=== PATIENT | male | born 1970 | race Caucasian/White ===

== ENCOUNTER 2019-09-21 01:45 | Emergency (ER) | payer MEDICAID, SELFPAY ==
[2019-09-21 01:53] VITALS: BP 93/47; PULSE 66; RESP 16; TEMP 36.8; O2SAT 98; BMI 20.5
--- NOTE | 2019-09-21 02:09 | CTR_ITS ---
PROCEDURE INFORMATION: Exam: CT Right Lower Extremity Without Contrast, Hip Exam date and time: 09/21/2019 2:33 AM Age: 49 years old Clinical indication: Right; Patient HX: No trauma, sudden onset of RT hip sharp pain; Additional info: Hip pain TECHNIQUE: Imaging protocol: CT of the Right lower extremity without contrast was performed. Exam focused on the hip. Radiation optimization: All CT scans at this facility use at least one of these dose optimization techniques: automated exposure control; mA and/or kV adjustment per patient size (includes targeted exams where dose is matched to clinical indication); or iterative reconstruction. COMPARISON: No relevant prior studies available. RADIATION DOSE METRICS: Total DLP (mGy-cm): 262.92 FINDINGS: Bones/joints: Normal. No acute fracture or dislocation. Soft tissues: Normal. CT/CT hip RT wo con* [id number] IMPRESSION: Unremarkable CT. Radiation Dose CTDIVOL = (mGy): DLP = 262.92 (mGy-cm)
--- NOTE | 2019-09-21 02:09 | XRR_ITS ---
PROCEDURE INFORMATION: Exam: XR Chest, 1 View Exam date and time: 09/21/2019 3:05 AM Age: 49 years old Clinical indication: Chest pain; Additional info: Cp TECHNIQUE: Imaging protocol: XR of the chest Views: 1 view. COMPARISON: CR Chest 1 [place] [id number] 10/18/2018 3:33 AM FINDINGS: Lungs: Unremarkable. No consolidation. Pleural space: Unremarkable. No evidence of pleural effusion or pneumothorax. Heart/Mediastinum: Unremarkable. No cardiomegaly. Bones/joints: Unremarkable. XR/XR chest 1V portable [id number] IMPRESSION: No acute findings.
--- NOTE | 2019-09-21 02:10 | ECG_ITS ---
[facility] Test Date: 2019-09-21 Pat Name: Delbert Nam Department: Room: Gender: Male Yarn Man: : 1970 Requested By: Cabrera Fox Order Number: [id number] Kendall MD: Karolina Richards M.D. Measurements Intervals [place] Rate: 61 P: 60 IA: 166 QRS: 101 QRSD: 96 T: 29 QT: 390 QTc: 394 Interpretive Statements SINUS RHYTHM POSSIBLE RIGHT VENTRICULAR HYPERTROPHY [SOME/ALL OF: PROMINENT R IN V1, LATE TRANSITION, RAD, CHATO, SSS] Compared to ECG 10/18/2018 05:16:04 Atrial abnormality now present Electronically Signed On 09-21-2019 12:41:09 CDT by Karolina Richards M.D. [id number]
--- NOTE | 2019-09-21 02:26 | ED_ITS ---
HPI - Chest Pain General: Chief Complaint: Chest Pain Stated Complaint: CP/ SOB Time Seen by Provider: 09/21/19 01:52 History of Present Illness: HPI narrative: 49-year-old male with a history of coronary disease. He states that he was using a chainsaw all day, cutting stumps out of his drive he did not have any chest discomfort at that point. He began to get significant right-sided groin pain after he was finished, walking up the driveway. He said the pain was quite intense. Following this, he got some chest discomfort with some shortness of breath. He was nauseated. He said the right side of his chest and right arm went numb as well. He took a nitroglycerin, and then got dizzy. On EMS arrival, he was found to be hypotensive. This corrected with fluids on the way here. His chest discomfort is gone. He is still complaining of right-sided groin pain it does not reach his testicle. 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 Onset (ago): hour(s) Timing of current episode: now resolved Prior episodes: Yes Onset: during exertion Pain location: substernal and right chest Pain radiation: other (Originated right groin) Quality: aching Exacerbating factors: exertion and movement Associated symptoms: Reports dyspnea and nausea; Deny abdominal pain, fever(s), leg edema, palpitations or vomiting Review of Systems Const: Denies: fever(s) Eyes: Denies: change in vision or blurry vision ENMT: Denies: swelling of lips/tongue, epistaxis or post nasal drip Card: Reports: chest pain; Denies: palpitations, edema, swelling of feet/ankles, dyspnea on exertion or o rthopnea Resp: Reports: dyspnea; Denies: productive cough, non-productive cough or wheezing GI: Reports: nausea; Denies: abdominal pain or vomiting : Denies: difficulty urinating, dysuria, urinary frequency, urinary urgency or hematuria Musc: Denies: neck pain, back pain, joint redness or joint warmth Skin/Breast: Denies: rash, pruritus or erythema Neuro: Reports: dizziness; Denies: headache(s) or vertigo Psych: Denies: anxiety PFS ED PFSH: Medical History (Updated 09/21/19 @ 06:09 by Cabrera Ruddy Chavo, DO) CAD (coronary artery disease) Diabetes Dizziness Family History Mother Stroke Diabetes Myocardial infarction Sister Diabetes Myocardial infarction Social History Smoking and tobacco status: current every day smoker cigarettes Physical Exam Const: GENERAL APPEARANCE: well developed ORIENTATION/CONSCIOUSNESS: Yes oriented to person, Yes oriented to place and Yes oriented to time HENMT: COMMON NORMALS: normocephalic, external ears normal and Normal external nose present HEAD & SCALP: normocephalic FACE & SINUS: normal facial exam NOSE: Normal external nose present and No nasal discharge present EXTERNAL EAR: Yes external ears normal Eye: COMMON NORMALS: Equal, round and reactive pupils present, EOMs intact bilaterally and conjunctivae normal EYELID: eyelids normal CONJUNCTIVA: Yes conjunctivae normal PUPIL: Yes Equal, round and reactive pupils present Neck/C-Spine: COMMON NORMALS: full ROM GENERAL: No tracheal deviation Chest: COMMONS NORMALS: normal inspection of the chest CHEST: No tenderness Resp: COMMON NORMALS: clear to auscultation bilaterally EFFORT & INSPECTION: No tachypneic, No respiratory distress, No retractions, No uses accessory muscles and No tracheal deviation AUSCULTATION: clear to auscultation bilaterally, no rhonchi, no wheezes and lung sounds not diminished Cardio: COMMON NORMALS: regular rate and regular rhythm RATE: regular rate RHYTHM: regular rhythm HEART SOUNDS: no murmurs PERIPHERAL PULSES: radial pulses present GI: INSPECTION: No abdominal distension AUSCULTATION: No Hyperactive bowel sounds present and No Hypoactive bowel sounds present PALPATION: No Guarding due to palpation present (GI) and No Rigid due to palpation PERCUSSION: no dullness to percussion and no tympanic to percussion Extremity: NARRATIVE EXTREMITY EXAM: Exam of the right lower extremity reveals right hip tenderness over the anterior joint line. There is some pain more distally. There is no deformity. There is no inguinal bulge. There is no femoral bulge. There is no bruising. There is mild pain with logroll testing. There is significant pain on Stinchfield testing. Neuro: SENSORIUM/ORIENTATION: Yes oriented to person, Yes oriented to place and Yes oriented to time Psych: COMMON NORMALS: mental status grossly normal Skin: COMMON NORMALS: no rashes or lesions noted GENERAL SKIN EXAM: no rashes or lesions noted Course Vital Signs: Vital signs: Vital Signs Temperature 98.2 F 09/21/19 01:53 Pulse Rate 54 L 09/21/19 05:00 Respiratory Rate 18 09/21/19 05:00 Blood Pressure 92/51 09/21/19 05:00 Pulse Oximetry 99 09/21/19 05:00 MDM - Chest Pain MDM Narrative: Medical decision making narrative: 49-year-old male does have a history of coronary disease. Sudden onset of right sided groin pain and then developed right sided chest pain. His d-dimer is nondetectable. CT of the hip region is negative for hemorrhage, joint effusion or derangement, lymphadenopathy, etc. Chest x-ray is negative. His EKG did not show any ST elevation or depression. His delta troponin is not significant at 2 hours. His other laboratory is benign. His chest pain is resolved. Lab Data: Labs: Lab Results 09/21/19 09/21/19 09/21/19 Range/Units 02:15 02:15 02:15 WBC 14.1 H (4.0-10.0) 10^3/ uL RBC 4.30 (4.1-5.3) 10^6/u L Hgb 12.2 (11.7-16.6) g/dL Hct 37.2 L (42.0-52.0) % MCV 86.5 (80-94) fL MCH 28.4 (28.0-34.0) pg MCHC 32.8 (30.0-36.0) g/dL RDW 14.2 (12.1-15.1) % Plt Count 222 (130-400) 10^3/c mm MPV 10.0 (7.4-10.4) fL Neut % (Auto) 80.7 % Lymph % (Auto) 10.9 % [place] % (Auto) 6.3 % Eos % (Auto) 1.4 % Baso % (Auto) 0.4 % Neut # (Auto) 11.36 H (1.8-7.7) 10^3/u L Lymph # (Auto) 1.5 (0.8-4.8) 10^3/u L [place] # (Auto) 0.9 (0.2-0.9) 10^3/u L Eos # (Auto) 0.2 (0.0-0.8) 10^3/u L Baso # (Auto) 0.1 (0.0-0.1) 10^3/u L Nucleated RBC % (a uto) 0 % Nucleated RBCs # 0.0 /100WBC D-Dimer (0-0.59) ug/mIFE U Sodium 139 (136-145) mmol/L Potassium 3.5 (3.5-5.1) mmol/L Chloride 106 (98-107) mmol/L Carbon Dioxide 23 (22-29) mmol/L Anion Gap 13.5 (5-19) BUN 15 (6-20) mg/dL Creatinine 1.0 (0.7-1.2) mg/dL GFR Calculation 79.4 L (90-130) mL/min Glucose 113 (65-115) mg/dL Calculated Osmolal ity 285 (285-295) mOsm/k g Calcium 8.1 L (8.5-10.5) mg/dL Total Bilirubin 0.4 (0.15-1.2) mg/dL AST 27 (0-40) U/L ALT 32 (0-41) U/L Alkaline Phosphata se 59 (40-130) IU/L Creatine Kinase 74 (39-308) U/L Troponin T Baselin e 9 (0-15) ng/L Troponin T 120 Min [place] (0-15) ng/L NT-Pro-B Natriuret Pep 61 (0-125) pg/mL Total Protein 6.1 L (6.6-8.7) g/dL Albumin 3.8 (3.5-5.2) g/dL Globulin 2.3 (1.3-4.6) g/dL 09/21/19 09/21/19 Range/Units 02:15 04:30 WBC (4.0-10.0) 10^3/ uL RBC (4.1-5.3) 10^6/u L Hgb (11.7-16.6) g/dL Hct (42.0-52.0) % MCV (80-94) fL MCH (28.0-34.0) pg MCHC (30.0-36.0) g/dL RDW (12.1-15.1) % Plt Count (130-400) 10^3/c mm MPV (7.4-10.4) fL Neut % (Auto) % Lymph % (Auto) % [place] % (Auto) % Eos % (Auto) % Baso % (Auto) % Neut # (Auto) (1.8-7.7) 10^3/u L Lymph # (Auto) (0.8-4.8) 10^3/u L [place] # (Auto) (0.2-0.9) 10^3/u L Eos # (Auto) (0.0-0.8) 10^3/u L Baso # (Auto) (0.0-0.1) 10^3/u L Nucleated RBC % (a uto) % Nucleated RBCs # /100WBC D-Dimer <= 0.27 (0-0.59) ug/mIFE U Sodium (136-145) mmol/L Potassium (3.5-5.1) mmol/L Chloride (98-107) mmol/L Carbon Dioxide (22-29) mmol/L Anion Gap (5-19) BUN (6-20) mg/dL Creatinine (0.7-1.2) mg/dL GFR Calculation (90-130) mL/min Glucose (65-115) mg/dL Calculated Osmolal ity (285-295) mOsm/k g Calcium (8.5-10.5) mg/dL Total Bilirubin (0.15-1.2) mg/dL AST (0-40) U/L ALT (0-41) U/L Alkaline Phosphata se (40-130) IU/L Creatine Kinase (39-308) U/L Troponin T Baselin e (0-15) ng/L Troponin T 120 Min [place] 10.85 (0-15) ng/L NT-Pro-B Natriuret Pep (0-125) pg/mL Total Protein (6.6-8.7) g/dL Albumin (3.5-5.2) g/dL Globulin (1.3-4.6) g/dL Discharge Plan Discharge Patient Disposition: Home Clinical Impression: Chest pain Qualifiers: Chest pain type: unspecified Qualified Code(s): R07.9 - Chest pain, unspecified Strain of muscle of right hip Qualifiers: Encounter type: initial encounter Qualified Code(s): S76.011A - Strain of muscle, fascia and tendon of right hip, initial encounter Condition: Stable Prescriptions: [place] 5-325 mg tablet 1 tab PO Q6H PRN (Reason: pain) Qty: 7 RF: 0 No Action lisinopril 2.5 mg tablet 2.5 mg PO QDAY RF: 0 metoprolol tartrate 25 mg tablet 25 mg PO BID RF: 0 clopidogrel [Plavix] 75 mg tablet 75 mg PO QDAY RF: 0 metformin 500 mg tablet 500 mg PO BID RF: 0 atorvastatin 40 mg tablet 40 mg PO QDAY RF: 0 nitroglycerin [Nitrostat] 0.4 mg tablet, sublingual 0.4 mg SUBLINGUAL DIRECTED RF: 0 Discharge Orders: Discharge Order (Routine); Ordered 09/21/19 Ordered By: Cabrera Tony Referrals: Danita Fischer PA [Primary Care Provider] - Patient Instructions: Chest Pain (ED), Muscle Strain (ED) Activity Restrictions/Additional Instructions: Return for worsening or return of chest pain, shortness of breath, other concerning symptoms. Also return for fever, worsening hip pain despite treatment, etc. Coding Level of Care Code ED Insulation Cupola Charger for [place] Fwd Exam Comprehensive
[2019-09-21 02:53] LABS: Troponin(5th) Baseline 9 ng/L (0-15)
[2019-09-21 03:01] VITALS: BP 93/45; PULSE 56; RESP 16; O2SAT 98
[2019-09-21 03:02] LABS: Alanine Aminotransferase 32 U/L (0-41); Albumin Level 3.8 g/dL (3.5-5.2); Alkaline Phosphatase 59 IU/L (40-130); Anion Gap 13.5 (5-19); Aspartate Amino Transferase 27 U/L (0-40); Blood Urea Nitrogen 15 mg/dL (6-20); Calcium 8.1 mg/dL (8.5-10.5); Carbon Dioxide 23 mmol/L (22-29); Chloride 106 mmol/L (98-107); Creatine Phosphokinase 74 U/L (39-308); Globulin 2.3 g/dL (1.3-4.6); Glomerular Filtration Rate 79.4 mL/min (90-130); Glucose 113 mg/dL (65-115); NT Pro B Type Natriuretic Pept 61 pg/mL (0-125); Osmolality Calculated 285 mOsm/kg (285-295); Potassium 3.5 mmol/L (3.5-5.1); Sodium 139 mmol/L (136-145); Total Bilirubin 0.4 mg/dL (0.15-1.2); Total Protein 6.1 g/dL (6.6-8.7)
[2019-09-21 03:07] LABS: Basophils # 0.1 10^3/uL (0.0-0.1); Basophils % 0.4 %; Eosinophils # 0.2 10^3/uL (0.0-0.8); Eosinophils % 1.4 %; Hematocrit 37.2 % (42.0-52.0); Hemoglobin 12.2 g/dL (11.7-16.6); Lymphocytes # 1.5 10^3/uL (0.8-4.8); Lymphocytes % 10.9 %; Mean Corpuscular HGB Conc 32.8 g/dL (30.0-36.0); Mean Corpuscular Hemoglobin 28.4 pg (28.0-34.0); Mean Corpuscular Volume 86.5 fL (80-94); Monocytes # 0.9 10^3/uL (0.2-0.9); Monocytes % 6.3 %; Neutrophils # 11.36 10^3/uL (1.8-7.7); Neutrophils % 80.7 %; Nucleated Red Blood Cells % 0 %; Platelet Count 222 10^3/cmm (130-400); Red Cell Distribution Width 14.2 % (12.1-15.1); White Blood Count 14.1 10^3/uL (4.0-10.0)
[2019-09-21 03:46] LABS: D Dimer <= 0.27 ug/mIFEU (0-0.59)
[2019-09-21 04:42] VITALS: BP 89/49; PULSE 53; RESP 14; O2SAT 100
[2019-09-21 05:00] VITALS: BP 92/51; PULSE 54; RESP 18; O2SAT 99
[2019-09-21 05:57] LABS: Troponin 5 2HR 10.85 ng/L (0-15); Troponin 5 2HR Delta 1.85 ABS# (0-10)
[2019-09-21 06:30] VITALS: BP 95/52; PULSE 56; RESP 14; O2SAT 98
== END 2019-09-21 06:32 | disposition home or self-care (01) ==
PROVIDERS: Emergency Provider Emergency Medicine; PCP Physician Assistant
DX: R07.9 Chest pain, unspecified (principal); S76.011A Strain of muscle, fascia and tendon of right hip, initial encounter; Z79.02 Long term (current) use of antithrombotics/antiplatelets; I25.10 Atherosclerotic heart disease of native coronary artery without angina pectoris; E11.9 Type 2 diabetes mellitus without complications; F17.210 Nicotine dependence, cigarettes, uncomplicated; Z79.84 Long term (current) use of oral hypoglycemic drugs; X50.9XXA Other and unspecified overexertion or strenuous movements or postures, initial encounter
CPT/HCPCS: 12345; 71045; 73700; 80053; 82550; 83880; 84484; 85025; 85378; 93005; 99283; 99284

== ENCOUNTER 2022-07-17 19:18 | Emergency (ER) | payer BC, MEDICAID, SELFPAY ==
[2022-07-17] VITALS (9 sets, daily range): BP systolic 78–105; BP diastolic 55–70; PULSE 64–90; RESP 16–20; O2SAT 96–98; BMI 26.6
--- NOTE | 2022-07-17 19:19 | ECG_ITS ---
[facility] Test Date: 2022-07-17 Pat Name: Delbert Nam Department: Room: Gender: Male Stylist Assistant: : 1970 Requested By: Chetan Remy Order Number: [id number] Kendall MD: Luis Carvalho M.D. Measurements Intervals [place] Rate: 79 P: 62 VT: 169 QRS: 69 QRSD: 83 T: 30 QT: 347 QTc: 400 Interpretive Statements SINUS RHYTHM POSSIBLE LEFT ATRIAL ENLARGEMENT [-0.1mV P-WAVE IN V1/V2] Compared to ECG 09/21/2019 02:17:59 No significant changes Electronically Signed On 07-17-2022 20:50:38 CDT by Luis Carvalho M.D. [email or web address] [facility].[employer] [facility]/store/NU/[id number] f
--- NOTE | 2022-07-17 19:19 | XRR_ITS ---
PROCEDURE INFORMATION: Exam: XR Chest Exam date and time: 07/17/2022 7:33 PM Age: 52 years old Clinical indication: Pain; Chest pressure; Additional info: Cp TECHNIQUE: Imaging protocol: Radiologic exam of the chest. Views: 1 view. COMPARISON: CR XR chest 2V* [id number] 06/26/2022 9:43 AM FINDINGS: Lungs: Unremarkable. No consolidation. Pleural spaces: Unremarkable. No pleural effusion. No pneumothorax. Heart/Mediastinum: Unremarkable. No cardiomegaly. Bones/joints: Unremarkable. XR/XR chest 1V portable [id number] IMPRESSION: No acute findings.
--- NOTE | 2022-07-17 19:35 | W.ED.CHESTPA ---
HPI - Chest Pain General: Chief Complaint: Chest Pain Stated Complaint: CP Time Seen by Provider: 07/17/22 19:19 Source: patient and EMS Mode of arrival: EMS Limitations: no limitations History of Present Illness: 52-year-old male states that he had been outside working yesterday and then was outside again today states when he came to the house started to get palpitations. He states he had this before his heart rate will jump up and its been due to dehydration the past he states he drink some fluids may continue to have some chest pain he states that the pain in the center of his chest he had some slight dyspnea as well. Patient came in by EMS he has received nitro in route he states he is currently pain-free he denies any diaphoresis or nausea. Associated symptoms: Reports palpitations; Deny abdominal pain, dyspnea, fever(s), nausea or vomiting Review of Systems Const: Denies: fever(s), chills, body aches or change in appetite ENMT: Denies: throat pain or dental pain Card: Reports: chest pain and palpitations Resp: Denies: dyspnea GI: Denies: abdominal pain, nausea, vomiting or diarrhea : Denies: dysuria Musc: Denies: neck pain or back pain Skin/Breast: Denies: rash Neuro: Denies: headache(s) Psych: Denies: depression PFSH ED PFSH: Medical History (Updated 07/17/22 @ 22:04 by Chetan Remy MD) CAD (coronary artery disease) Diabetes Dizziness Family History Mother Stroke Diabetes Myocardial infarction Sister Diabetes Myocardial infarction Social History Smoking and tobacco status: current every day smoker cigarettes Physical Exam Const: COMMON NORMALS: no acute distress, patient oriented x3 and healthy appearing HENMT: COMMON NORMALS: normocephalic and atraumatic HEAD & SCALP: normocephalic and atraumatic Eye: COMMON NORMALS: conjunctivae normal CONJUNCTIVA: Yes conjunctivae normal Neck/C-Spine: COMMON NORMALS: full ROM and supple Chest: COMMONS NORMALS: normal inspection of the chest and normal palpation of entire chest wall Resp: COMMON NORMALS: normal respiratory effort, No retractions, No use of accessory muscles and clear to auscultation bilaterally AUSCULTATION: clear to auscultation bilaterally Cardio: COMMON NORMALS: regular rate, regular rhythm and No murmurs present (Cardio) RATE: regular rate RHYTHM: regular rhythm GI: COMMON NORMALS: Normal to inspection, nondistended, normoactive bowel sounds present, Soft to palpation, non-tender and no masses PALPATION: Yes Soft to palpation Extremity: COMMON NORMALS: normal to inspection and full ROM Neuro: COMMON NORMALS: patient oriented x3, moves all extremities and no focal motor deficits Psych: COMMON NORMALS: mental status grossly normal, Normal thought process present and cooperative THOUGHT PROCESS: Normal thought process present Skin: COMMON NORMALS: no rashes or lesions noted and no wounds GENERAL SKIN EXAM: no rashes or lesions noted Course Vital Signs: Vital signs: Vital Signs Pulse Rate 82 07/17/22 22:11 Respiratory Rate 16 07/17/22 22:11 Blood Pressure 93/60 07/17/22 22:11 Pulse Oximetry 97 07/17/22 22:11 Oxygen Delivery Me thod Room Air 07/17/22 21:19 MDM - Chest Pain Medical Decision Making Patient presents here with chest pains atypical in nature initial repeat troponins here are normal delta is less than 10 he has had no pain here no signs of acute coronary syndrome no signs of pulmonary embolism or dissection he is stable for discharge she is to follow-up with PCP and return if worsening. Medical Records I reviewed the patient's medical records. Lab Data I reviewed the patient's lab results. 07/17/22 19:40 07/17/22 19:40 Radiology Impressions Chest X-Ray 07/17/22 19:19 IMPRESSION: No acute findings. Laboratory Results WBC 12.6 10^3/uL (4.0-10.0) H 07/17/22 19:40 RBC 5.25 10^6/uL (4.1-5.3) 07/17/22 19:40 Hgb 14.8 g/dL (11.7-16.6) 07/17/22 19:40 Hct 45.9 % (42.0-52.0) 07/17/22 19:40 MCV 87.4 fl (80-94) 07/17/22 19:40 MCH 28.2 pg (28.0-34.0) 07/17/22 19:40 MCHC 32.2 g/dL (30.0-36.0) 07/17/22 19:40 RDW 13.9 % (12.1-15.1) 07/17/22 19:40 Plt Count 268 10^3/cmm (130-400) 07/17/22 19:40 MPV 9.1 fL (7.4-10.4) 07/17/22 19:40 Neut % (Auto) 63.1 % 07/17/22 19:40 Lymph % (Auto) 22.9 % 07/17/22 19:40 [place] % (Auto) 7.3 % 07/17/22 19:40 Eos % (Auto) 5.7 % 07/17/22 19:40 Baso % (Auto) 0.6 % 07/17/22 19:40 Neut # (Auto) 7.98 10^3/uL (1.8-7.7) H 07/17/22 19:40 Lymph # (Auto) 2.9 10^3/uL (0.8-4.8) 07/17/22 19:40 [place] # (Auto) 0.9 10^3/uL (0.2-0.9) 07/17/22 19:40 Eos # (Auto) 0.7 10^3/uL (0.0-0.8) 07/17/22 19:40 Baso # (Auto) 0.1 10^3/uL (0.0-0.1) 07/17/22 19:40 Nucleated RBC % (auto) 0 % 07/17/22 19:40 Nucleated RBCs # 0.0 /100WBC 07/17/22 19:40 Sodium 139 mmol/L (136-145) 07/17/22 19:40 Potassium 3.9 mmol/L (3.5-5.1) 07/17/22 19:40 Chloride 104 mmol/L (98-107) 07/17/22 19:40 Carbon Dioxide 21 mmol/L (22-29) L 07/17/22 19:40 Anion Gap 17.9 (5-19) 07/17/22 19:40 BUN 17 mg/dL (6-20) 07/17/22 19:40 Creatinine 1.0 mg/dL (0.7-1.2) 07/17/22 19:40 GFR Calculation 78.5 mL/min (90-130) L 07/17/22 19:40 Glucose 94 mg/dL (65-115) 07/17/22 19:40 Calculated Osmolality 289 mOsm/kg (285-295) 07/17/22 19:40 Calcium 8.6 mg/dL (8.5-10.5) 07/17/22 19:40 Total Bilirubin 0.3 mg/dL (0.15-1.2) 07/17/22 19:40 AST 16 U/L (0-40) 07/17/22 19:40 ALT 22 U/L (0-41) 07/17/22 19:40 Alkaline Phosphatase 82 U/L (40-130) 07/17/22 19:40 Troponin T Baseline 14 ng/L (0-15) 07/17/22 19:40 Troponin T 120 Minute 20.56 ng/L (0-15) H 07/17/22 21:24 Delta Troponin T 6.56 ABS# (0-10) 07/17/22 21:24 Total Protein 6.7 g/dL (6.6-8.7) 07/17/22 19:40 Albumin 4.0 g/dL (3.5-5.2) 07/17/22 19:40 Globulin 2.7 g/dL (1.3-4.6) 07/17/22 19:40 EKG Data EKG 1: I personally reviewed and interpreted this EKG as follows: EKG interpretation date: 07/17/22 EKG interpretation time: 19:29 Interpretation: nsr hr [address] or t wave abnormalities qrs 83 qtc 382 Discharge Plan Discharge Patient Disposition: Home Clinical Impression: Chest pain Condition: Stable Prescriptions: No Action metoprolol tartrate 25 mg tablet 25 mg PO BID metformin 500 mg tablet 500 mg PO BID atorvastatin 40 mg tablet 40 mg PO QDAY nitroglycerin [Nitrostat] 0.4 mg tablet, sublingual 0.4 mg SUBLINGUAL DIRECTED lisinopril 2.5 mg tablet 2.5 mg PO QDAY Qty: 90 3RF clopidogrel [Plavix] 75 mg tablet 75 mg PO DAILY Qty: 90 3RF [place] 5-325 mg tablet 1 tab PO Q6H PRN (Reason: pain) Qty: 7 0RF Discharge Orders: Discharge ED (Routine); Ordered 07/17/22 Ordered By: Chetan Remy Referrals: Danita Fischer PA [Primary Care Provider] - 1-3 days Discharge Diet: Advance as tolerated Discharge Activity: Resume usual activity Patient Instructions: Chest Pain (ED) Coding Level of Care Code ED Belt Machine Operator for Alan Gilliam
[2022-07-17] MEDS: sodium chloride 0.9% 1,000 ML 999 ML IV ×2 (19:43→20:22)
[2022-07-17 19:54] LABS: Basophils # 0.1 10^3/uL (0.0-0.1); Basophils % 0.6 %; Eosinophils # 0.7 10^3/uL (0.0-0.8); Eosinophils % 5.7 %; Hematocrit 45.9 % (42.0-52.0); Hemoglobin 14.8 g/dL (11.7-16.6); Lymphocytes # 2.9 10^3/uL (0.8-4.8); Lymphocytes % 22.9 %; Mean Corpuscular HGB Conc 32.2 g/dL (30.0-36.0); Mean Corpuscular Hemoglobin 28.2 pg (28.0-34.0); Mean Corpuscular Volume 87.4 fl (80-94); Mean Platelet Volume 9.1 fL (7.4-10.4); Monocytes # 0.9 10^3/uL (0.2-0.9); Monocytes % 7.3 %; Neutrophils # 7.98 10^3/uL (1.8-7.7); Neutrophils % 63.1 %; Nucleated Red Blood Cells % 0 %; Platelet Count 268 10^3/cmm (130-400); Red Blood Count 5.25 10^6/uL (4.1-5.3); Red Cell Distribution Width 13.9 % (12.1-15.1); White Blood Count 12.6 10^3/uL (4.0-10.0)
[2022-07-17 20:15] LABS: Troponin(5th) Baseline 14 ng/L (0-15)
[2022-07-17 20:18] LABS: Alanine Aminotransferase 22 U/L (0-41); Alkaline Phosphatase 82 U/L (40-130); Anion Gap 17.9 (5-19); Aspartate Amino Transferase 16 U/L (0-40); Blood Urea Nitrogen 17 mg/dL (6-20); Calcium 8.6 mg/dL (8.5-10.5); Carbon Dioxide 21 mmol/L (22-29); Chloride 104 mmol/L (98-107); Creatinine Clr Calc Pharmacy 88.9675; Globulin 2.7 g/dL (1.3-4.6); Glomerular Filtration Rate 78.5 mL/min (90-130); Glucose 94 mg/dL (65-115); Osmolality Calculated 289 mOsm/kg (285-295); Potassium 3.9 mmol/L (3.5-5.1); Sodium 139 mmol/L (136-145); Total Bilirubin 0.3 mg/dL (0.15-1.2); Total Protein 6.7 g/dL (6.6-8.7)
--- NOTE | 2022-07-17 21:19 | ECG_ITS ---
[facility] Test Date: 2022-07-17 Pat Name: Delbert Nam Department: Room: Gender: Male Surgery Consultant: : 1970 Requested By: Chetan Remy Order Number: [id number] Kendall MD: Luis Carvalho M.D. Measurements Intervals [place] Rate: 62 P: -1 DE: 163 QRS: 5 QRSD: 88 T: 28 QT: 383 QTc: 390 Interpretive Statements SINUS RHYTHM POSSIBLE LEFT ATRIAL ENLARGEMENT [-0.1mV P-WAVE IN V1/V2] Compared to ECG 07/17/2022 19:29:37 No significant changes Electronically Signed On 07-18-2022 6:42:55 CDT by Luis Carvalho M.D. [email or web address] [email or web address].MedWhat/store/NU/[id number] f
[2022-07-17 21:48] LABS: Troponin 5 2HR 20.56 ng/L (0-15)
[2022-07-17 21:50] LABS: Troponin 5 2HR Delta 6.56 ABS# (0-10)
== END 2022-07-17 22:14 | disposition home or self-care (01) ==
PROVIDERS: Emergency Provider Emergency Medicine; PCP Physician Assistant
DX: R07.9 Chest pain, unspecified (principal); Z79.84 Long term (current) use of oral hypoglycemic drugs; Z79.02 Long term (current) use of antithrombotics/antiplatelets; I25.10 Atherosclerotic heart disease of native coronary artery without angina pectoris; E11.9 Type 2 diabetes mellitus without complications; F17.210 Nicotine dependence, cigarettes, uncomplicated
CPT/HCPCS: 71045; 80053; 84484; 85025; 93005; 96360; 96361; 99285; J7030

== ENCOUNTER 2022-09-14 09:40 | Emergency (ER) | payer BC, MEDICAID, SELFPAY ==
[2022-09-14 09:42] VITALS: BP 120/73; PULSE 62; RESP 16; TEMP 36.6; O2SAT 99; BMI 24.7
--- NOTE | 2022-09-14 09:58 | XR_ITS ---
WS: [id number] Exam: XR chest 1V portable [id number] Date/Time of Exam: 09/14/2022 10:00 AM Reason For Exam: cp Comparison 09/12/2022. Findings: The lungs are clear and fully expanded. Costophrenic angles are sharp. No infiltrates. Bronchovascula r relief appears normal. Cardiac silhouette is unremarkable. Bony elements are intact. XR/XR chest 1V portable [id number] IMPRESSION: Unremarkable chest radiograph.
--- NOTE | 2022-09-14 09:58 | ECG_ITS ---
[facility] Test Date: 2022-09-14 Pat Name: Delbert Nam Department: Room: Gender: Male Helper Electrical: : 1970 Requested By: Ruddy Wong Order Number: [id number] Argueta MD: Karolina Richards M.D. Measurements Intervals [place] Rate: 56 P: 70 [place]: 165 QRS: 68 QRSD: 89 T: 61 QT: 410 QTc: 397 Interpretive Statements SINUS BRADYCARDIA LEFT ATRIAL ENLARGEMENT [-0.15mV P-WAVE IN V1/V2] Compared to ECG 07/17/2022 21:19:01 Sinus rhythm no longer present Electronically Signed On 09-14-2022 16:23:39 CDT by Karolina Richards M.D. [email or web address] [email or web address] Diningpro[facility].[employer]kor/store/NU/[id number]
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
[2022-09-14 10:29] LABS: Basophils # 0.1 10^3/uL (0.0-0.1); Basophils % 0.8 %; Eosinophils # 0.8 10^3/uL (0.0-0.8); Eosinophils % 6.8 %; Hematocrit 41.3 % (42.0-52.0); Hemoglobin 13.8 g/dL (11.7-16.6); Lymphocytes # 2.8 10^3/uL (0.8-4.8); Lymphocytes % 23.6 %; Mean Corpuscular HGB Conc 33.4 g/dL (30.0-36.0); Mean Corpuscular Hemoglobin 28.9 pg (28.0-34.0); Mean Corpuscular Volume 86.6 fl (80-94); Mean Platelet Volume 9.8 fL (7.4-10.4); Monocytes # 0.9 10^3/uL (0.2-0.9); Neutrophils # 7.07 10^3/uL (1.8-7.7); Neutrophils % 60.5 %; Nucleated Red Blood Cells % 0 %; Platelet Count 264 10^3/cmm (130-400); Red Blood Count 4.77 10^6/uL (4.1-5.3); Red Cell Distribution Width 14.3 % (12.1-15.1); White Blood Count 11.7 10^3/uL (4.0-10.0)
[2022-09-14 10:36] VITALS: RESP 15; O2SAT 97
[2022-09-14] MEDS: morphine 4 mg/mL SDV 1 mL IVP (10:36)
[2022-09-14] MEDS: ondansetron 2 mg/ML SDV 2 mL 4 MG IVP (10:37)
[2022-09-14] MEDS: aspirin 81 mg Chew Tablet 324 MG PO (10:37)
[2022-09-14 10:44] LABS: Troponin(5th) Baseline 12 ng/L (0-15)
[2022-09-14 10:52] LABS: Alanine Aminotransferase 24 U/L (0-41); Albumin Level 4.6 g/dL (3.5-5.2); Alkaline Phosphatase 78 U/L (40-130); Anion Gap 17.2 (5-19); Aspartate Amino Transferase 19 U/L (0-40); Blood Urea Nitrogen 15 mg/dL (6-20); Calcium 9.5 mg/dL (8.5-10.5); Carbon Dioxide 24 mmol/L (22-29); Chloride 103 mmol/L (98-107); Globulin 2.3 g/dL (1.3-4.6); Glomerular Filtration Rate 63.6 mL/min (90-130); Glucose 113 mg/dL (65-115); NT Pro B Type Natriuretic Pept 87 pg/mL (0-125); Osmolality Calculated 292 mOsm/kg (285-295); Potassium 4.2 mmol/L (3.5-5.1); Sodium 140 mmol/L (136-145); Total Bilirubin 0.3 mg/dL (0.15-1.2); Total Protein 6.9 g/dL (6.6-8.7)
--- NOTE | 2022-09-14 10:54 | PC.PHAR ---
Addendum entered by Xochitl Yang 09/14/22 10:57: PT STATES HE IS STILL TAKING ATORVASTATIN 40MG HS EXT SHOWS LAST FILLED 07/14/22 30D/S PT STATES HE HAS A BUILD UP OF THIS MEDICATION Original Note: PT STATES HE TAKES CARE OF HIS OWN MEDICATIONS-PT STATES HIS LISINOPRIL 2.5MG DAILY AND METOPROLOL TARTRATE 25MG BID WAS PUT ON HOLD Sunday09/12/22-PT STATES HE IS NO LONGER TAKING PLAVIX 75MG EXT DOESNT SHOW WHEN LAST FILLED BUT SHOWS RX WRITTEN 10/20/20-
[2022-09-14 10:55] VITALS: PULSE 51; RESP 14; O2SAT 98
[2022-09-14] MEDS: ipratropium-albuterol 3 mL Neb 6 ML INHALATION (10:55)
[2022-09-14 11:05] VITALS: PULSE 58
--- NOTE | 2022-09-14 12:01 | ECG_ITS ---
[facility] Test Date: 2022-09-14 Pat Name: Delbert Nam Department: Room: Gender: Male [employer] Breathing Apparatus: : 1970 Requested By: Ruddy Wong Order Number: [id number] Argueta MD: Karolina Richards M.D. Measurements Intervals [place] Rate: 47 P: 63 MI: 169 QRS: 51 QRSD: 85 T: 52 QT: 453 QTc: 401 Interpretive Statements SINUS BRADYCARDIA POSSIBLE LEFT ATRIAL ENLARGEMENT [-0.1mV P-WAVE IN V1/V2] Compared to ECG 07/17/2022 21:19:01 Sinus rhythm no longer present Electronically Signed On 09-14-2022 12:30:16 CDT by Karolina Richards M.D. [email or web address]
[2022-09-14 12:51] VITALS: BP 104/56; PULSE 49; RESP 16; O2SAT 97
[2022-09-14 13:04] LABS: Troponin 5 2HR 10.22 ng/L (0-15)
[2022-09-14 13:08] LABS: Troponin 5 2HR Delta -1.78 ABS# (0-10)
[2022-09-14 14:12] VITALS: BP 118/69; PULSE 47; RESP 16; O2SAT 97
== END 2022-09-14 14:13 | disposition home or self-care (01) ==
PROVIDERS: Emergency Provider Physician Assistant; PCP Physician Assistant
DX: R07.89 Other chest pain (principal); Z79.82 Long term (current) use of aspirin; Z79.84 Long term (current) use of oral hypoglycemic drugs; I25.10 Atherosclerotic heart disease of native coronary artery without angina pectoris; E11.9 Type 2 diabetes mellitus without complications; F17.210 Nicotine dependence, cigarettes, uncomplicated
CPT/HCPCS: 36415; 71045; 80053; 83880; 84484; 85025; 93005; 94640; 96374; 96375; 99285; J2270; J2405

== ENCOUNTER 2022-10-12 14:16 | Outpatient (CLI) | payer BC, MEDICAID, SELFPAY ==
--- NOTE | 2022-10-12 14:21 | CT_ITS ---
WS: [id number] CT chest w con* [id number] HISTORY: Costochondritis TECHNIQUE: Axial imaging performed through the thorax. Coronal and sagittal reformats are submitted. All CT scans at [facility] use at least one of these dose optimization techniques: automated exposure control; mA and/or kV adjustment per patient size (includes targeted exams where dose is mat ched to clinical indication); or iterative reconstruction. CONTRAST: Omnipaque 350; 100 mL IV. DLP: 222.64 mGy.cm COMPARISON: None available. Lungs and central airway: Mild pulmonary hyperexpansion and centrilobular emphysema. No mass or pulmo nary nodule. There is a tiny pleural tag in the anterior mid right middle lobe. Pleura: Normal. No pleural effusion. Heart and pericardium: Normal size heart with no pericardial effusion. Mediastinum and rebel: No mediastinum or hilar adenopathy. Vessels: Normal size aortic and pulmonary artery. No coronary artery calcifications. Chest wall and lower neck: No soft tissue masses. Upper abdomen: Very small hiatal hernia. No adrenal mass. Osseous structures: No destructive process. IMPRESSION: 1. No pneumonia or pulmonary mass. 2. Mild paraseptal emphysema. 3. No adenopathy. 4. Small hiatal hernia.
[2022-10-12] MEDS: iohexol 350 mg/mL 500 mL Btl (per mL) IV (14:53)
== END 2022-10-12 14:17 | disposition home or self-care (01) ==
LOC: RAD 14:17
PROVIDERS: PCP Physician Assistant; Visit Provider Family Medicine
DX: R00.1 Bradycardia, unspecified (principal); J43.9 Emphysema, unspecified; K44.9 Diaphragmatic hernia without obstruction or gangrene
CPT/HCPCS: 71260; Q9967

== ENCOUNTER 2022-10-16 18:16 | Observation (INO) | payer BC, MEDICAID, SELFPAY ==
[2022-10-16 18:18] VITALS: BMI 24.3
[2022-10-16 18:22] VITALS: BP 112/73; PULSE 85; RESP 16; TEMP 36.6; O2SAT 95
--- NOTE | 2022-10-16 18:52 | W.ED.ARRPALP ---
HPI - Arrhythmia/Palpitations General: Chief Complaint: Arrhythmia/Palpitations Stated Complaint: heart palpatations Time Seen by Provider: 10/16/22 18:21 Source: patient Mode of arrival: EMS Limitations: no limitations History of Present Illness: This patient was brought to the emergency department because of feeling lightheaded and feeling like he was having a intermittent rapid heart rate. 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 States he noted his symptoms today when he was waiting for his kids to get off the bus. He states he has about a 15-minute walk from his location to the bus stop. He states he has been actively drinking water and drink at least 2 quarts of water daily. He states he has not been engaged in any other exhausting physical activity today. He had a history of similar occurrences in the past and has had ambulatory monitoring and currently has a long-term ambulatory monitor on his chest. Denies any history of thyroid dysfunction. He is smoking tobacco but is cutting down on that habit. He states he has not drank any cough in the last or caffeine in the last 2 days[address] denies any [address] drugs or other stimulants. There is no family history of sudden or arrhythmia that he is aware of. Denies any history of thyroid disease etc. MD complaint: rapid heart beat Context: occurred during exertion Associated symptoms: Deny nausea, pre-syncope, syncope or vomiting Review of Systems Const: Denies: fever(s), chills, change in appetite or change in weight Eyes: Denies: change in vision ENMT: Denies: nasal congestion Card: Reports: palpitations and lightheadedness; Denies: chest pain, irregular heart rhythm, edema, syncope or pre-syncope Resp: Denies: dyspnea, productive cough or non-productive cough GI: Denies: abdominal pain, nausea, vomiting or diarrhea : Denies: flank pain, difficulty urinating, dysuria or oliguria Musc: Denies: neck pain, back pain, extremity pain or extremity swelling Skin/Breast: Denies: rash Neuro: Denies: numbness in extremities or weakness in extremities Endo: Denies: polyuria, polydipsia, tired all the time or cold intolerance PFS ED PFSH: Medical History (Updated 10/16/22 @ 20:57 by Keven Santana DO) CAD (coronary artery disease) Diabetes Dizziness Family History Mother Stroke Diabetes Myocardial infarction Sister Diabetes Myocardial infarction Social History Smoking and tobacco status: current every day smoker cigarettes Physical Exam Narrative: EXAM NARRATIVE: Somewhat disheveled but alert and speaks in a goal-directed fashion with fluent speech. Const: COMMON NORMALS: no acute distress, average body habitus and patient oriented x3 GENERAL APPEARANCE: cooperative, comfortable and disheveled HENMT: COMMON NORMALS: normocephalic, Normal nasal mucous membranes and turbinates present, moist oral mucous membranes and oropharynx normal HEAD & SCALP: normocephalic NOSE: Normal nasal mucous membranes and turbinates present Eye: COMMON NORMALS: Equal, round and reactive pupils present, EOMs intact bilaterally and conjunctivae normal CONJUNCTIVA: Yes conjunctivae normal PUPIL: Yes Equal, round and reactive pupils present Neck/C-Spine: COMMON NORMALS: full ROM, no lymphadenopathy and supple Chest: COMMONS NORMALS: normal inspection of the chest Resp: COMMON NORMALS: normal respiratory effort, No retractions, No use of accessory muscles and clear to auscultation bilaterally EFFORT & INSPECTION: Yes able to speak in complete sentences AUSCULTATION: clear to auscultation bilaterally Cardio: COMMON NORMALS: regular rate, regular rhythm, No murmurs present (Cardio) and Peripheral pulses 2+ throughout RATE: regular rate RHYTHM: regular rhythm PERIPHERAL PULSES: Peripheral pulses 2+ throughout GI: COMMON NORMALS: Normal to inspection, nondistended, normoactive bowel sounds present, Soft to palpation and non-tender PALPATION: Yes Soft to palpation : COMMON NORMALS: Yes no CVA tenderness BLADDER/KIDNEY EXAM: Yes no CVA tenderness Back/Pelvis: COMMON NORMALS: no CVA tenderness, thoracic and lumbar spine normal to inspection, no thoracic nor lumbar tenderness and thoraco-lumbar ROM normal Extremity: COMMON NORMALS: normal to inspection, full ROM, capillary refill normal, no calf tenderness and no pedal edema Neuro: COMMON NORMALS: patient oriented x3, moves all extremities, no focal motor deficits and no sensory deficits noted Psych: COMMON NORMALS: mental status grossly normal Skin: COMMON NORMALS: no rashes or lesions noted, no wounds, turgor normal and no petechiae GENERAL SKIN EXAM: no rashes or lesions noted and turgor normal Course Reevaluation(s): Reevaluation #1: Remained stable heart rate remains normal sinus without any ectopy or sustained rhythm changes etc. 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 At no time did the patient have chest pain. Does have history of coronary disease and stents was placed him in the hospital and obtain a high-sensitivity troponin for risk stratification but does not represent acute ischemia or ACS based upon presentation, EKGs etc. Time: 20:53 Consultations: Consultation #1: Discussed with overnight hospitalist Dr. Le who agrees to place in observation for continued hydration and follow-up. 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 No associated chest pain or shortness of breath. Patient admitted to drinking water. He denies any fevers drug use stimulant use etc. Does have a past history of coronary disease, diabetes as well as ongoing evaluation of palpitations. Clinical examination revealed him to be in no acute distress. Had some evidence of warm skin but no elevation in core temperature. Initial laboratories revealed an elevation in his BUN and creatinine of significance compared with prior readings from 1 month ago. CK was normal, he had no evidence of arrhythmias or ischemic changes on EKG or monitor while in the emergency department. He was given the benefit of aggressive hydration in the emergency department and will be placed in observation for continued hydration and reevaluation of his acute kidney injury. No evidence to suggest ACS, rhabdomyolysis, drug use etc. at this time. Medical Records I reviewed the patient's medical records. Prior RCA lesion with stenting noted in old records Lab Data I reviewed the patient's lab results. His creatinine has doubled over the past month. 10/16/22 18:50 10/16/22 18:50 Laboratory Results WBC 18.8 10^3/uL (4.0-10.0) H 10/16/22 18:50 RBC 5.43 10^6/uL (4.1-5.3) H 10/16/22 18:50 Hgb 15.2 g/dL (11.7-16.6) 10/16/22 18:50 Hct 45.4 % (42.0-52.0) 10/16/22 18:50 MCV 83.6 fl (80-94) 10/16/22 18:50 MCH 28.0 pg (28.0-34.0) 10/16/22 18:50 MCHC 33.5 g/dL (30.0-36.0) 10/16/22 18:50 RDW 14.0 % (12.1-15.1) 10/16/22 18:50 Plt Count 318 10^3/cmm (130-400) 10/16/22 18:50 MPV 9.9 fL (7.4-10.4) 10/16/22 18:50 Neut % (Auto) 64.6 % 10/16/22 18:50 Lymph % (Auto) 16.8 % 10/16/22 18:50 [place] % (Auto) 6.0 % 10/16/22 18:50 Eos % (Auto) 11.6 % 10/16/22 18:50 Baso % (Auto) 0.7 % 10/16/22 18:50 Neut # (Auto) 12.15 10^3/uL (1.8-7.7) H 10/16/22 18:50 Lymph # (Auto) 3.2 10^3/uL (0.8-4.8) 10/16/22 18:50 [place] # (Auto) 1.1 10^3/uL (0.2-0.9) H 10/16/22 18:50 Eos # (Auto) 2.2 10^3/uL (0.0-0.8) H 10/16/22 18:50 Baso # (Auto) 0.1 10^3/uL (0.0-0.1) 10/16/22 18:50 Nucleated RBC % (auto) 0 % 10/16/22 18:50 Nucleated RBCs # 0.0 /100WBC 10/16/22 18:50 Sodium 137 mmol/L (136-145) 10/16/22 18:50 Potassium 4.1 mmol/L (3.5-5.1) 10/16/22 18:50 Chloride 100 mmol/L (98-107) 10/16/22 18:50 Carbon Dioxide 19 mmol/L (22-29) L 10/16/22 18:50 Anion Gap 22.1 (5-19) H 10/16/22 18:50 BUN 53 mg/dL (6-20) H 10/16/22 18:50 Creatinine 2.2 mg/dL (0.7-1.2) H 10/16/22 18:50 GFR Calculation 31.6 mL/min (90-130) L 10/16/22 18:50 Glucose 77 mg/dL (65-115) 10/16/22 18:50 Calculated Osmolality 297 mOsm/kg (285-295) H 10/16/22 18:50 Calcium 9.8 mg/dL (8.5-10.5) 10/16/22 18:50 Magnesium 1.8 mg/dL (1.7-2.3) 10/16/22 18:50 Creatine Kinase 109 U/L (39-308) 10/16/22 18:50 TSH 0.97 uIU/mL (0.27-4.20) 10/16/22 18:50 Urine Opiates Screen Negative ng/mL (Negative) 10/16/22 19:04 Ur Barbiturates Screen Negative ng/mL (Negative) 10/16/22 19:04 Ur Phencyclidine Scrn Negative ng/mL (Negative) 10/16/22 19:04 Ur Amphetamines Screen Negative ng/mL (Negative) 10/16/22 19:04 U Benzodiazepines Scrn Negative ng/mL (Negative) 10/16/22 19:04 Urine Cocaine Screen Negative ng/mL (Negative) 10/16/22 19:04 U Marijuana (THC) Screen Negative ng/mL (Negative) 10/16/22 19:04 EKG Data EKG 1: I personally reviewed and interpreted this EKG as follows: Interpretation: Contemporaneous review of resting EKG reveals a ventricular rate of 84 bpm with normal GA, QRS duration, corrected QT interval. Normal axis. Consistent with normal sinus rhythm. Suggestion of late left atrial enlargement by P wave and limb lead II. No acute changes. No change from previous tracing within the system. Discharge Plan Discharge Patient Disposition: Placed in Observation Clinical Impression: Volume depletion, Acute kidney injury, Diabetes Condition: Stable Prescriptions: No Action metoprolol tartrate 25 mg tablet 25 mg PO BID Rx Instructions: MEDICATION ON HOLD OF 09/12/22 atorvastatin 40 mg tablet 40 mg PO BEDTIME cetirizine 10 mg tablet 10 mg PO QAM Aspir-81 81 mg Tablet,Delayed Release (Dr/Ec) 81 mg PO QAM Nitrostat 0.4 mg Tablet, Sublingual 0.4 mg SUBLINGUAL Q5M PRN (Reason: Chest Pain) Rx Instructions: do not exceed 3 doses per episode fluticasone propionate 50 mcg/actuation spray,suspension 2 spray INTRANASAL DAILY PRN (Reason: Allergy Symptoms) Januvia 100 mg tablet 100 mg PO BEDTIME lisinopril 2.5 mg tablet 2.5 mg PO DAILY Rx Instructions: MEDICATION ON HOLD OF 09/12/22 metformin 1,000 mg tablet 1,000 mg PO BID albuterol sulfate 90 mcg/actuation HFA aerosol inhaler 2 inh inhalation Q6H PRN (Reason: shortness of breath or wheezing) Qty: 8.5 0RF Referrals: Danita Fischer PA [Primary Care Provider] - Coding Level of Care Code ED Drugless Doctor for Alan Gilliam
[2022-10-16 19:07] LABS: Basophils # 0.1 10^3/uL (0.0-0.1); Basophils % 0.7 %; Eosinophils # 2.2 10^3/uL (0.0-0.8); Eosinophils % 11.6 %; Hematocrit 45.4 % (42.0-52.0); Hemoglobin 15.2 g/dL (11.7-16.6); Lymphocytes # 3.2 10^3/uL (0.8-4.8); Lymphocytes % 16.8 %; Mean Corpuscular HGB Conc 33.5 g/dL (30.0-36.0); Mean Corpuscular Volume 83.6 fl (80-94); Mean Platelet Volume 9.9 fL (7.4-10.4); Monocytes # 1.1 10^3/uL (0.2-0.9); Neutrophils # 12.15 10^3/uL (1.8-7.7); Neutrophils % 64.6 %; Nucleated Red Blood Cells % 0 %; Platelet Count 318 10^3/cmm (130-400); Red Blood Count 5.43 10^6/uL (4.1-5.3); White Blood Count 18.8 10^3/uL (4.0-10.0)
[2022-10-16 19:10] VITALS: BP 107/76; PULSE 75; RESP 19; O2SAT 96
[2022-10-16] MEDS: lactated ringers 1,000 ML 999 ML IV (19:31)
[2022-10-16 19:35] LABS: Anion Gap 22.1 (5-19); Blood Urea Nitrogen 53 mg/dL (6-20); Calcium 9.8 mg/dL (8.5-10.5); Carbon Dioxide 19 mmol/L (22-29); Chloride 100 mmol/L (98-107); Glomerular Filtration Rate 31.6 mL/min (90-130); Glucose 77 mg/dL (65-115); Magnesium 1.8 mg/dL (1.7-2.3); Osmolality Calculated 297 mOsm/kg (285-295); Potassium 4.1 mmol/L (3.5-5.1); Sodium 137 mmol/L (136-145); Thyroid Stimulating Hormone 0.97 uIU/mL (0.27-4.20)
[2022-10-16 19:40] LABS: Amphetamines Screen Urine Negative (Negative); Barbiturates Screen Urine Negative (Negative); Benzodiazepines Screen Urine Negative (Negative); Cocaine Screen Urine Negative (Negative); Opiate Screen Urine Negative (Negative); PCP Screen Urine Negative (Negative); THC Screen Urine Negative (Negative)
[2022-10-16 19:46] LABS: Creatinine Clr Calc Pharmacy 40.1984
[2022-10-16 20:01] VITALS: BP 108/75; PULSE 75; RESP 23; O2SAT 95
[2022-10-16] MEDS: acetaminophen 500 mg Tablet 1000 MG PO (20:27)
[2022-10-16 20:30] LABS: Creatine Phosphokinase 109 U/L (39-308)
[2022-10-16 21:00] VITALS: BP 110/73; PULSE 74; RESP 19; O2SAT 96
[2022-10-16 21:45] LABS: Troponin T (5th) Once 11 ng/L (0-15)
[2022-10-16 21:52] VITALS: BP 119/76; PULSE 64; RESP 18; O2SAT 96
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
[2022-10-16] MEDS: sodium chloride 0.9% 1,000 ML 125 ML IV (23:58)
[2022-10-17] VITALS (14 sets, daily range): BP systolic 95–163; BP diastolic 62–76; PULSE 49–80; RESP 15–18; TEMP 36.4–37.2; O2SAT 93–97
[2022-10-17 05:03] LABS: Basophils # 0.1 10^3/uL (0.0-0.1); Basophils % 1.1 %; Eosinophils % 18.3 %; Hematocrit 38.8 % (42.0-52.0); Hemoglobin 13.2 g/dL (11.7-16.6); Lymphocytes # 2.6 10^3/uL (0.8-4.8); Lymphocytes % 23.5 %; Mean Corpuscular Hemoglobin 29.1 pg (28.0-34.0); Mean Corpuscular Volume 85.5 fl (80-94); Mean Platelet Volume 9.9 fL (7.4-10.4); Monocytes # 0.8 10^3/uL (0.2-0.9); Monocytes % 7.6 %; Neutrophils # 5.36 10^3/uL (1.8-7.7); Neutrophils % 49.2 %; Nucleated Red Blood Cells % 0 %; Platelet Count 237 10^3/cmm (130-400); Red Blood Count 4.54 10^6/uL (4.1-5.3); White Blood Count 10.9 10^3/uL (4.0-10.0)
[2022-10-17 05:20] LABS: Estmated Average Glucose 143; Hemoglobin A1C 6.6 % (4.0-6.0)
[2022-10-17 05:32] LABS: Alanine Aminotransferase 24 U/L (0-41); Albumin Level 3.9 g/dL (3.5-5.2); Alkaline Phosphatase 69 U/L (40-130); Anion Gap 12.7 (5-19); Aspartate Amino Transferase 17 U/L (0-40); Blood Urea Nitrogen 49 mg/dL (6-20); Calcium 8.6 mg/dL (8.5-10.5); Carbon Dioxide 25 mmol/L (22-29); Chloride 103 mmol/L (98-107); Globulin 2.2 g/dL (1.3-4.6); Glomerular Filtration Rate 49.1 mL/min (90-130); Glucose 102 mg/dL (65-115); Osmolality Calculated 297 mOsm/kg (285-295); Phosphorus 3.4 mg/dL (2.5-4.5); Potassium 3.7 mmol/L (3.5-5.1); Sodium 137 mmol/L (136-145); Total Bilirubin 0.3 mg/dL (0.15-1.2); Total Protein 6.1 g/dL (6.6-8.7)
[2022-10-17 05:37] LABS: Chol HDL Ratio 3.86 mg/dL (1.0-5.00); Cholesterol 139 mg/dL (0-200); Creatine Phosphokinase 92 U/L (39-308); HDL Cholesterol 36 mg/dL (60-100); LDL Cholesterol Calculated 69 mg/dL (50-129); LDL HDL Ratio 1.92 RATIO (0.00-3.22); Triglycerides 172 mg/dL (0-150)
[2022-10-17] MEDS: sodium chloride 0.9% 1,000 ML 125 ML IV ×3 (06:31→22:47)
[2022-10-17 08:01] LABS: Glucose Point of Care 208 mg/dL (70-110)
--- NOTE | 2022-10-17 08:20 | ECG_ITS ---
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 Measurements Intervals [place] Rate: 66 P: 64 [place]: 162 QRS: 61 QRSD: 88 T: 37 QT: 401 QTc: 421 Interpretive Statements SINUS RHYTHM Compared to ECG 09/14/2022 12:01:55 Sinus bradycardia no longer present Electronically Signed On 10-18-2022 19:55:56 CDT by Kris Sparrow M.D. [email or web address] Medicine [email or web address] [email or web address] medical centerIT MOVES IT/store/[id number]
--- NOTE | 2022-10-17 08:35 | PC.PHAR ---
Addendum entered by Xochitl Yang 10/17/22 08:50: PT STATES BEEN OUT OF 81MG ASPIRIN FOR 2 WEEKS Original Note: PT STATES HE TAKES CARE OF HIS OWN MEDICATIONS-PT STATES HE TAKES LISINOPRIL 2.5MG DAILY PRN AND METOPROLOL TARTRATE 25MG BID PRN-PT STATES HE USE TO BE ON BLOOD THINNERS STATES NOT TAKEN FOR 2 YEARS
[2022-10-17] MEDS: fluticasone nasal spray 16gm Btl 1 SPRAY NASAL ×2 (08:44→17:38)
[2022-10-17] MEDS: metoprolol tartrate 25 mg Tablet PO ×2 (08:44→20:10)
[2022-10-17] MEDS: aspirin 81 mg EC Tablet PO (08:44)
[2022-10-17] MEDS: pantoprazole DR 40 mg Tablet PO (08:44)
[2022-10-17] MEDS: insulin lispro 100 unit/1 mL SUBCUT ×3 (08:46→21:44)
[2022-10-17 09:04] LABS: Troponin(5th) Baseline 11 ng/L (0-15)
--- NOTE | 2022-10-17 09:53 | PC.CHAP ---
Pastoral Care Encounter/Spiritual Assessment Type of Contact [] Declined gear straightener visit [] Patient/Family/Request visit [] Outpatient visit [] Follow-up visit [] Physician referral [] Code/Alert [] Routine visit [] Staff referral [] Actively dying [] Patient sleeping [] Family support [] [] Out of room [] Palliative care [] [x] Receiving care in room [] Pre-surgical visit [] Trauma [] Long length of stay [] ICU visit [] Other: Relational/Emotional Strength [] Patient feels connected with others/family/visitors/staff [] Distress [] Loneliness/isolation [] Abandonment Spirituality of Patient [] Person of Dorys [] Attends Scientology of their Dorys [] Believes in Prayer [] Reads Bible or Sabianism materials [] There are Spiritual issues to be addressed Traffic Reporter Interventions [] Prayer [] Active listening [] Non-anxious presence [] Spiritual/emotional support [] Crisis/trauma care [] Spiritual counseling [] Bereavement support [] Provided bereavement packet [] Provided Bible/devotional materials [] Provided toy/stuffed animal, coloring book to patient or family member [] Provided Communion [] Anointing/Tyro [] Salvation [] Completed spiritual assessment [] Other: Impact on Illness or Injury [] Angry [] Fearful [] Anxious [] Often cries [] Exhaustion [] Unable to work [] Unable to attend episcopal [] Unable to walk/stand [] Unable to read [] Unable to drive [] Unable to eat/drink [] Unable to sleep [] Unable to be with family [] Patient intubated [] Other: Summary Time spent with patient
--- NOTE | 2022-10-17 11:18 | ECG_ITS ---
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 Measurements Intervals [place] Rate: 60 P: 55 ME: 174 QRS: 54 QRSD: 81 T: 36 QT: 386 QTc: 388 Interpretive Statements SINUS RHYTHM POSSIBLE LEFT ATRIAL ENLARGEMENT [-0.1mV P-WAVE IN V1/V2] Compared to ECG 10/17/2022 08:20:24 No significant changes Electronically Signed On 10-18-2022 20:12:39 CDT by Kris Sparrow M.D. [email or web address] Websitesouth central regional medical centerPowerCloud Systemshocking valley community [facility].Accurence/store/OM/[id number]
[2022-10-17 11:19] LABS: Glucose Point of Care 136 mg/dL (70-110)
[2022-10-17 11:26] LABS: Troponin 5 2HR 10.98 ng/L (0-15); Troponin 5 2HR Delta -0.02 ABS# (0-10)
--- NOTE | 2022-10-17 12:24 | USCV_ITS ---
NamLuisDelbert Age: 52 Gender: M : 1970 Exam Date: 10/17/2022 15:41 Ordering Phys: Mata Brafdord MD Technologist: KATERINE Exam Location: [facility] [place] Indication: LIGHT HEADEDNESS BP: 107 / 69 HR: 56 Rhythm: Sinus Technical Quality: Adequate MEASUREMENTS (Male / Female) Normal Values 2D ECHO LVOT Diameter 2.0 cm LV Ejection Fraction MOD 2C 63.7 % LV Ejection Fraction 2C AL 66.2 % LA Diameter 2.9 cm LA Width 3.0 cm LA Height 4.8 cm RA Width 2.8 cm RA Height 4.9 cm Aorta at Sinotubular Diameter 2.8 cm IVC Diameter 1.7 cm M-MODE Aortic Annulus Diameter 2.6 cm LA Ao Ratio MM 1.1 MV E Point Septal Separation 0.5 cm DOPPLER AV Peak Velocity 117.0 cm/s LVOT Peak Velocity 50.7 cm/s AV Area Cont Eq vti 1.8 cm squared AV Area Cont Eq pk 1.4 cm squared MV Peak Velocity 86.0 cm/s MV Area PHT 3.3 cm squared Mitral E to A Ratio 1.2 MV E' Velocity 57.5 cm/s Mitral E to MV E' Ratio 9.2 Mitral E to LV E' Lateral Ratio 9.7 Mitral E to LV E' Septal Ratio 8.9 TR Peak Velocity 134.3 cm/s TR Peak Gradient 7.2 mmHg TR Mean Velocity 89.6 cm/s TR Mean Gradient 3.8 mmHg TR Velocity Time Integral 34.7 cm TV Peak E Velocity 64.0 cm/s Right Atrial Pressure 3.0 mmHg Pulmonary Artery Systolic Pressu 10.2 mmHg PV Peak Velocity 70.0 cm/s RV Acceleration Time 0.2 s RV Ejection Time 0.3 s RV AcT/ET 0.5 FINDINGS Left Ventricle Normal left ventricular size and systolic function, EF 62 %. No regional wall motion abnormalities. Right Ventricle The right ventricle is normal in size and function. Right Atrium The right atrium is normal in size. Left Atrium The left atrium is normal in size. Mitral Valve No gross abnormalities noted Aortic Valve No gross abnormalities noted Tricuspid Valve No gross abnormalities noted Pulmonic Valve Pulmonic valve not well visualized. Pericardium Normal pericardium without effusion. Aorta Normal ascending aorta dimension. IVC The inferior vena cava appears normal. CONCLUSIONS Normal left ventricular size and systolic function, EF 62 %. No regional wall motion abnormalities. Normal cardiac chamber sizes No gross valvular abnormalities There are no intracardiac masses. There is no pericardial effusion. Compared to the study from 10/18/2018, there may not be significant change Dr Kris Sparrow MD FACC (Electronically Signed) Final Date: 17 October 2022 20:47 S
--- NOTE | 2022-10-17 12:31 | ECG_ITS ---
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 Interpretive Statements NAME OF STUDY: LEXISCAN SESTAMIBI STRESS TEST INDICATION: Dizziness PROCEDURE: At the baseline, the blood pressure was 115 over 65 mmHg with a heart rate of 53 beats per min. The electrocardiogram showed sinus bradycardia, right axis deviation. The Lexiscan was infused over a period of 20 seconds. A total of 0.4 milligrams of Lexiscan was infused. The stress phase was continued for a total of 5 minutes. Heart rate at the end of the stress phase was 88 bpm with a blood pressure 118/69 mmHg. The EKG at the peak infusion revealed sinus rhythm at 88 bpm with no significant ST-T wave changes. Sestamibi was injected 20 seconds after the Lexiscan infusion. Blood pressure at the end of the recovery phase was 125/67 mmHg with a heart rate of 79 beats per minute. CONCLUSION: 1. No significant EKG changes with the LexiScan infusion. 2. No LexiScan induced chest pain or cardiac arrhythmia. 3. Normal blood pressure and heart rate response. 4. Sestamibi/sestamibi perfusion scan pending; see separate report. Electronically Signed On 10-24-2022 16:37:55 CDT by Karolina Richards M.D. [id number]
--- NOTE | 2022-10-17 14:17 | ECG_ITS ---
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 Measurements Intervals [place] Rate: 53 P: 57 AL: 172 QRS: 54 QRSD: 89 T: 38 QT: 425 QTc: 399 Interpretive Statements SINUS BRADYCARDIA POSSIBLE LEFT ATRIAL ENLARGEMENT [-0.1mV P-WAVE IN V1/V2] Compared to ECG 10/17/2022 11:18:28 Sinus rhythm no longer present Electronically Signed On 10-18-2022 20:12:56 CDT by Kris Sparrow M.D. [id number]
[2022-10-17 14:54] LABS: Troponin 5 6HR 9.11 ng/L (0-15); Troponin 5 6HR Delta -1.89 ng/L (0-12)
[2022-10-17 14:56] LABS: Add Urine Microscopic? NO; Charge for UA Resulting for Rev
[2022-10-17 15:00] LABS: Urine Appearance Clear (CLEAR); Urine Color Yellow (Yellow)
[2022-10-17 15:01] LABS: Bilirubin Urine Neg (Negative); Blood Urine Neg (Negative); Glucose Urine UA Trace (Normal); Ketones Urine Negative (Negative); Leukocyte Esterase Urine Negative (Negative); Nitrate Urine Negative (Negative); Protein Urine Neg (Negative); Specific Gravity, Urine 1.005 (1.005-1.030); Urobilinogen Urine Norm (Negative); pH Urine 5 (5-7)
--- NOTE | 2022-10-17 15:21 | PM.PN ---
Subjective Subjective: Patient was seen this morning, he does have complaints of intermittent dizziness, for which he is wearing the event monitor, he has had a couple ER visits for presyncope, chest pain, he has a stress test ordered for tomorrow, denies any nausea, any vomiting, no abdominal pain. I spoke to the event monitor company, patient had 2 episodes of heart rates in the 170s 1 in the 180s yesterday, and at that point he was symptomatic, they told me that it was sinus tachycardia, no significant arrhythmia Vitals/I&O/Wt Last Vital Signs Temp 97.9 F 10/17/22 12:00 Pulse 76 10/17/22 12:24 Resp 16 10/17/22 12:00 BP 95/62 10/17/22 12:24 Pulse Ox 94 10/17/22 12:00 O2 Del Method Room Air 10/17/22 08:18 10/17/22 10/17/22 10/17/22 06:59 14:59 22:59 Intake Total 918.75 / 1918.75 1360 / 1360 Output Total 3350 / 3350 Balance 918.75 / 1918.75 -1989 / Weight last 48 hrs Weight 74.843 kg Physical Exam Const: COMMON NORMALS: no acute distress and patient oriented x3 Resp: COMMON NORMALS: normal respiratory effort, No retractions, No use of accessory muscles and clear to auscultation bilaterally AUSCULTATION: clear to auscultation bilaterally Cardio: COMMON NORMALS: regular rate, regular rhythm, S1 normal heart sound present and S2 normal heart sound present RATE: regular rate RHYTHM: regular rhythm HEART SOUNDS: S1 normal heart sound present and S2 normal heart sound present GI: COMMON NORMALS: Normal to inspection, nondistended, normoactive bowel sounds present and non-tender Extremity: COMMON NORMALS: no pedal edema Neuro: COMMON NORMALS: patient oriented x3 Psych: COMMON NORMALS: mental status grossly normal Data 10/17/22 04:06 10/17/22 04:06 A&P Assessment and plan (1) Dizziness: - Complains of dizziness, presyncope, -Some of his dizziness is due to his orthostatic hypotension Is volume depletion but he does have chronic dizziness and presyncope, chest pain -Stress test was ordered for tomorrow -Given his heart rates of 170s to 180s on his event monitor and that he is symptomatic -We will order cardiac echo -Serial EKGs, serial troponins, telemetry monitoring -N.p.o. midnight, for stress test tomorrow (2) Volume depletion: Heat related (3) Acute kidney injury: Secondary to volume depletion/prerenal, improving (4) Leukocytosis: Suspect reactive secondary to acute event today. Has a mildly productive cough and is a known smoker. Recent CT of the chest unremarkable. (5) CAD (coronary artery disease): With history of right coronary artery stent (6) Diabetes mellitus, type II: Qwc-inmmqlc-xkombtaed without complication (7) Chronic kidney disease: Stage II at baseline (8) Hypertension: Primary hypertension chronically on metoprolol and low-dose lisinopril (9) Hyperlipidemia: Chronically on statin therapy (10) COPD (chronic obstructive pulmonary disease): Related to smoking, has a cough but not definitively acute exacerbation (11) Nicotine dependence, cigarettes, with other nicotine-induced disorders: (12) Orthostatic hypotension: Patient's orthostatics are still positive, continue IV fluids for now Plan VTE prophylaxis: Currently low risk for VTE; start Lovenox GI Prophylaxis: PPI Telemetry: Ordered Villarreal: Not indicated Line(s): Peripheral IV Disposition plan: Anticipate discharge home, continued regular consumption of water and other cooling measures will need to be encouraged until the current heat wave passes and is at high risk for recurrent symptoms from heat Code Status: Full code Attestations Medical Necessity Statement*: Patient requires hospitalization for orthostatic hypotension with persistent dizziness, lightheadedness, event monitor showing heart rates in the 170s to 180s, cardiac echocardiogram ordered, stress test ordered, as he has been complaining chest pain recently, has a history of CAD, stress test was ordered as outpatient, will do it tomorrow Diagnoses Dizziness R42 Volume depletion E86.9 Acute kidney injury N17.9 Leukocytosis D72.829 CAD (coronary artery disease) I25.10 Diabetes mellitus, type II E11.9 Chronic kidney disease N18.9 Hypertension I10 Hyperlipidemia E78.5 COPD (chronic obstructive pulmonary disease) J44.9 Nicotine dependence, cigarettes, with other nicotine-induced disorders F17.218 Orthostatic hypotension I95.1
[2022-10-17 17:32] LABS: Glucose Point of Care 206 mg/dL (70-110)
[2022-10-17] MEDS: enoxaparin 40 mg/0.4 mL Syringe SUBCUT (17:38)
[2022-10-17] MEDS: acetaminophen 325 mg Tablet 650 MG PO (20:09)
[2022-10-17] MEDS: atorvastatin 40 mg Tablet PO (20:10)
[2022-10-17 21:10] LABS: Glucose Point of Care 141 mg/dL (70-110)
[2022-10-18] VITALS (9 sets, daily range): BP systolic 102–125; BP diastolic 66–89; PULSE 50–84; RESP 15–16; TEMP 36.4–36.6; O2SAT 94–97
[2022-10-18 05:13] LABS: Basophils # 0.1 10^3/uL (0.0-0.1); Basophils % 1.1 %; Eosinophils # 2.1 10^3/uL (0.0-0.8); Eosinophils % 16.7 %; Hematocrit 37.7 % (37-53); Lymphocytes # 2.8 10^3/uL (0.8-4.8); Mean Corpuscular HGB Conc 33.2 g/dL (30-55); Mean Corpuscular Hemoglobin 28.4 pg (27-33); Mean Corpuscular Volume 85.7 fl (82-101); Mean Platelet Volume 10.1 fL (7.4-10.4); Monocytes # 0.9 10^3/uL (0.2-0.9); Monocytes % 7.1 %; Neutrophils # 6.37 10^3/uL (1.8-7.7); Neutrophils % 51.8 %; Nucleated Red Blood Cells % 0 %; Platelet Count 220 10^3/cmm (157-399); Red Cell Distribution Width 14.1 % (12.1-15.1)
[2022-10-18 05:36] LABS: Blood Urea Nitrogen 28 mg/dL (6-20); Calcium 8.9 mg/dL (8.5-10.5); Carbon Dioxide 24 mmol/L (22-29); Chloride 109 mmol/L (98-107); Glomerular Filtration Rate 70.3 mL/min (90-130); Glucose 88 mg/dL (65-115); Osmolality Calculated 297 mOsm/kg (285-295); Sodium 141 mmol/L (136-145)
[2022-10-18 05:49] LABS: Anion Gap 12.7 (5-19); Potassium 4.7 mmol/L (3.5-5.1)
--- NOTE | 2022-10-18 06:00 | NMCV_ITS ---
NM jerod perf SPECT r/s* [id number] Kaylan Named Age: 52 Gender: M : 1970 Exam Date: 10/18/2022 06:00 Ordering Phys: Mata Bradford MD Technologist: JOELLEN Hayden Exam Location: [facility] Indications: CHEST PAIN STRESS TEST Please [facility] IMAGE PROTOCOL Stress/Rest 1 Lexiscan Day Radiopharmaceutical Dose (mCi) Administration Site Administered by Rest: Tc-99m 10.6 IV JOELLEN Herrera Sestamibi Stress:Tc-99m 32.7 IV JOELLEN Herrera Sestamibi Rest: 18-Oct-2022 60 Discovery 630 Stress: 18-Oct-2022 30 Discovery 630 0.4mg Lexiscan. Images obtained in supine and prone position. SPECT RESULTS Technical Quality: Excellent Raw Data Analysis: Normal Image Corrections: No attenuation or motion correction applied Summed Stress Score: 0 Summed Rest Score: 3 Summed Difference Score: 0 PERFUSION FINDINGS A small area of slightly decreased tracer uptake was noted in the inferolateral and apical lateral regions with no significant reversibility FUNCTIONAL RESULTS (calculated via Gated SPECT) Stress Image LV EF (%): 67 Stress EDV (mL):97 TID: 1.15 Stress ESV (mL):32 FUNCTIONAL FINDINGS: Segmental wall motion analysis revealing no gross wall motion abnormalities IMPRESSIONS 1. Myocardial perfusion imaging revealing a small area of persistent decreased tracer uptake in the inferolateral and apical lateral region suggestive of myocardial scarring versus aspiration artifact. 2. Normal LV ejection fraction 67%. 3. LV wall motion analysis revealing no gross wall motion abnormalities. 4. Normal LV volume Low probability for coronary ischemia, based on the above findings. No similar previous studies are available for comparison Dr Kris Sparrow MD [facility] (Electronically Signed) Final Date: 18 October 2022 13:41 S
[2022-10-18] MEDS: sodium chloride 0.9% 1,000 ML 125 ML IV (06:28)
[2022-10-18 06:43] LABS: Glucose Point of Care 109 mg/dL (70-110)
[2022-10-18] MEDS: regadenoson 0.4 Mg/5 ml Syringe IVP (07:30)
[2022-10-18] MEDS: fluticasone nasal spray 16gm Btl 1 SPRAY NASAL ×2 (10:04→18:30)
[2022-10-18] MEDS: aspirin 81 mg EC Tablet PO (10:04)
[2022-10-18] MEDS: pantoprazole DR 40 mg Tablet PO (10:04)
[2022-10-18] MEDS: metoprolol tartrate 25 mg Tablet PO (10:04)
[2022-10-18 11:14] LABS: Glucose Point of Care 123 mg/dL (70-110)
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
--- NOTE | 2022-10-18 15:48 | PC.SOCIAL ---
Nurse Merrick asked [employer]ASH[employer] to arrange MTM ride. SHASHANK arrange ride, trip #[id number].
[2022-10-18 16:40] LABS: Glucose Point of Care 143 mg/dL (70-110)
== END 2022-10-18 18:38 | disposition home or self-care (01) ==
LOC: ER 21:17 → MEDSURG 21:42
PROVIDERS: Admitting Provider Hospitalist; Emergency Provider Emergency Medicine; PCP Physician Assistant; Visit Provider Family Medicine
DX: R42 Dizziness and giddiness (principal); E86.9 Volume depletion, unspecified; N17.9 Acute kidney failure, unspecified; D72.829 Elevated white blood cell count, unspecified; I25.10 Atherosclerotic heart disease of native coronary artery without angina pectoris; E11.22 Type 2 diabetes mellitus with diabetic chronic kidney disease; I12.9 Hypertensive chronic kidney disease with stage 1 through stage 4 chronic kidney disease, or unspecified chronic kidney disease; N18.9 Chronic kidney disease, unspecified; E78.5 Hyperlipidemia, unspecified; J44.9 Chronic obstructive pulmonary disease, unspecified; F17.218 Nicotine dependence, cigarettes, with other nicotine-induced disorders; I95.1 Orthostatic hypotension
CPT/HCPCS: 36415; 36416; 78452; 80048; 80053; 80061; 80306; 81003; 82550; 82962; 83036; 83735; 84100; 84443; 84484; 85025; 93005; 93017; 93306; 96360; 96361; 96372; 96375; 99285; A9500; G0378; J1650; J1815; J2785; J7030; J7120; Q3014

== ENCOUNTER 2022-11-07 11:12 | Outpatient (CLI) | payer BC, MEDICAID, SELFPAY ==
[2022-11-07 11:15] VITALS: BMI 24.5
--- NOTE | 2022-11-07 11:26 | ECG_ITS ---
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 Interpretive Statements NAME OF STUDY: TREADMILL STRESS TEST INDICATION: Chest Pressure Baseline blood pressure of 116/75 mm Hg, heart rate of 61 beats per minute and oxygen saturation 96%. EKG showed sinus rhythm, right axis deviation with normal ST-Ts. The patient exercised for 10 minutes 21 seconds on a standard Jonnathan protocol. Patient attained a maximum heart rate of 151 beats per minute(89% of the maximum predicted heart rate) with a blood pressure at the peak exercise of 160/53 mm Hg oxygen saturation of 97%. The EKG at the peak exercise revealed sinus tachycardia with no significant ST-T wave changes. Patient did not have any chest pain or any significant arrhythmis with the exercise. Study was terminated due to maximal effort. During the recovery phase, there were no new changes. Blood pressure at the end of the recovery phase was 116/76 mm Hg with a heart rate of 84 beats per minute and saturation of 95%. CONCLUSION: 1. Normal EKG response to treadmill exercise. 2. No exercise-induced chest pain or cardiac arrhythmia. 3. Excellent exercise tolerance, attained a maximum of 13.5 METs. 4. Baseline normal blood pressure with normal response to exercise. Electronically Signed On 11-07-2022 14:22:58 CDT by Karolina Richards M.D. [id number]
[2022-11-07 12:13] VITALS: BP 183/82; PULSE 82
== END 2022-11-07 11:13 | disposition home or self-care (01) ==
LOC: CDL 11:12
PROVIDERS: PCP Physician Assistant; Visit Provider Physician Assistant
DX: R07.9 Chest pain, unspecified (principal)
CPT/HCPCS: 93017

== ENCOUNTER 2023-04-10 04:10 | Emergency (ER) | payer BC, MEDICAID, SELFPAY ==
[2023-04-10 04:15] VITALS: BP 149/69; PULSE 52; RESP 16; TEMP 36.4; BMI 24.2
[2023-04-10 04:33] VITALS: BP 149/69; PULSE 51; O2SAT 99
--- NOTE | 2023-04-10 04:50 | ECG_ITS ---
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 Measurements Intervals [place] Rate: 51 P: 63 ND: 177 QRS: 50 QRSD: 86 T: 58 QT: 404 QTc: 373 Interpretive Statements SINUS BRADYCARDIA POSSIBLE LEFT ATRIAL ENLARGEMENT [-0.1mV P-WAVE IN V1/V2] Compared to ECG 10/17/2022 14:02:49 No significant changes Electronically Signed On 04-10-2023 16:30:34 WAFER MACHINE OPERATOR by Luis Carvalho M.D. [id number] f
--- NOTE | 2023-04-10 04:50 | XRR_ITS ---
PROCEDURE INFORMATION: Exam: XR Cervical Spine Exam date and time: 04/10/2023 4:58 AM Age: 52 years old Clinical indication: Patient HX: C/O numbness to left upper extremity; Additional info: Pain TECHNIQUE: Imaging protocol: Radiologic exam of the cervical spine. Views: 2 or 3 views. COMPARISON: CT chest w con* [id number] 10/12/2022 2:50 PM FINDINGS: Bones/joints: Normal. No acute fracture. Normal alignment. Soft tissues: Unremarkable. XR/XR cervical spine 3V* [id number] IMPRESSION: No acute findings.
[2023-04-10 05:17] VITALS: PULSE 52; O2SAT 96
[2023-04-10 05:18] VITALS: BP 114/68
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
[2023-04-10 05:45] VITALS: BP 107/67; PULSE 54; O2SAT 97
== END 2023-04-10 05:46 | disposition home or self-care (01) ==
PROVIDERS: Emergency Provider Internal Medicine; PCP Physician Assistant
DX: M54.12 Radiculopathy, cervical region (principal); Z79.82 Long term (current) use of aspirin; Z79.84 Long term (current) use of oral hypoglycemic drugs; I25.10 Atherosclerotic heart disease of native coronary artery without angina pectoris; E11.22 Type 2 diabetes mellitus with diabetic chronic kidney disease; I12.9 Hypertensive chronic kidney disease with stage 1 through stage 4 chronic kidney disease, or unspecified chronic kidney disease; N18.2 Chronic kidney disease, stage 2 (mild); J44.9 Chronic obstructive pulmonary disease, unspecified; E78.5 Hyperlipidemia, unspecified; F17.210 Nicotine dependence, cigarettes, uncomplicated
CPT/HCPCS: 72040; 93005; 99284

== ENCOUNTER → 2023-08-09 09:45 | Outpatient (BNVA) | payer BC, MEDICAID, SELFPAY | PROVIDERS: PCP Physician Assistant; Visit Provider Student in an Organized Health Care Education/Training Program | DX: G56.03 Carpal tunnel syndrome, bilateral upper limbs (principal); M72.2 Plantar fascial fibromatosis; E11.29 Type 2 diabetes mellitus with other diabetic kidney complication; N18.9 Chronic kidney disease, unspecified; Z79.84 Long term (current) use of oral hypoglycemic drugs | CPT/HCPCS: 73110; 73630 ==

== ENCOUNTER 2023-09-12 05:37 | Day surgery (SDC) | payer BC, MEDICAID, SELFPAY ==
[2023-09-12] VITALS (7 sets, daily range): BP systolic 108–143; BP diastolic 53–77; PULSE 52–78; RESP 16–18; TEMP 36.4–36.5; O2SAT 92–97
[2023-09-12] MEDS: sodium chloride 0.9% 1,000 ML 30 ML IV (06:16)
[2023-09-12] MEDS: acetaminophen 1,000 MG/100 ML PIGGYBACK 400 MG IV (06:16)
[2023-09-12] MEDS: ketorolac 30 mg/mL INJ IVP (06:18)
[2023-09-12 06:26] LABS: Glucose Point of Care 138 mg/dL (70-110)
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
[2023-09-12] MEDS: ceFAZolin 2,000 MG in sodium chloride 0.9% (plus) 50 ML 100 MG IV (07:00)
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
[2023-09-12] MEDS: ROPivacaine 0.5% SDV 30 mL 150 MG INJECTION (07:28)
[2023-09-12] MEDS: lidocaine-epi 1% 20 mL INJ INJECTION (07:28)
--- NOTE | 2023-09-12 07:40 | P.BOP_ITS ---
Date of Procedure: [09/12/2023] Surgeon: [Hudson Wong DO] Cartography/Mapping Technician(s): [None] Procedure(s) performed: Left carpal tunnel release Findings of the procedure(s): [Patient have left carpal tunnel syndrome underwent procedure as planned without issues or Complications] Estimated blood loss: [1 mL] Specimen(s) removed: [None] Post-operative diagnosis: [Left carpal tunnel syndrome]
--- NOTE | 2023-09-12 07:42 | PM.OP ---
Operative Report Date of procedure: September 12, 2023 Surgeon: Hudson Wong DO Procedure: Preoperative diagnosis: Left carpal tunnel syndrome Post-op diagnosis: Same Procedure done: 1.?Left carpal tunnel release Surgeon: Hudson Wong DO Anesthesia: MAC (Local) Estimated blood?loss: [1?]mL Tourniquet time [ 6]minutes IV fluids: See anesthesia record Complications: None Findings: See operative report narrative Condition: stable Disposition: same day Brief History: Patient is a pleasant [53? ]year-old [?Male ]?with?left carpal tunnel syndrome.? Patient has been worked up in the outpatient setting findings and physical examination consistent with this.? Patient nerve?conduction studies consistent with carpal tunnel syndrome.? We detailed?out?patient's risk benefits complication alternatives with surgical and?nonsurgical treatment options. Through shared decision making, patient?agrees to proceed with surgical intervention of the?left carpal tunnel release .? Patient understands and agrees with current plan.? All questions answered.? Patient elects to proceed with surgical intervention with carpal tunnel release. Procedure: Patient seen and evaluated in the preoperative holding area.? Consent was reviewed and signed with patient.? Correct extremity was marked.? Patient was seen evaluated by the anesthesia department once cleared for surgery was brought back to the operative suite.? Patient was kept on [facility] in supine position all bony prominences were well-padded patient properly secured to the bed.??Left upper extremity was then placed onto an armboard.? A nonsterile tourniquet was applied to the?left upper arm.? Patient underwent anesthesia per the anesthesia department.? Patient's?left upper extremity was then prepped and draped in standard orthopedic fashion.? Final timeout performed.? Patient received appropriate preoperative antibiotics. Under sterile aseptic technique patient received?local anesthesia over the preplanned carpal tunnel incision site. Esmarch was used to exsanguinate the?left upper extremity and tourniquet was insufflated to 250 mmHg. A standard mini open?left carpal tunnel incision was made.? Starting distally at Cuevas's cardinal?line in?line with the fourth ray extending proximally distal to the wrist crease centered over the carpal tunnel.? Sharp scalpel incision was made through skin and subcutaneous tissue.? Self-retaining retractor was placed and the palmar fascia was identified.? This was then split?longitudinally and direct visualization of the transverse carpal?ligament was then made.? I then utilizing scalpel feathered through the transverse carpal?ligament until I entered the floor of the transverse carpal tunnel?ligament into the carpal tunnel.? Next I switched to dissection scissors and completed my release of the transverse carpal?ligament distally with care to protect the recurrent motor branch.? I completely released into the palmar fat and until no entrapment was noted distally.? Care was made to protect the superficial palmar arch during my distal dissection.? Next focused my dissection proximally and placed a nasal speculum proximally over top of the transverse carpal ligament and had direct visualization of the transverse carpal ligament proximally. Next I then placed a [place] underneath the transverse carpal tunnel?ligament to protect the contents of the carpal tunnel and subsequently utilizing dissection scissors under?loupe magnification completely released the transverse carpal?ligament proximally into the median antebrachial fascia.? Care was made to protect the palmar cutaneous branch by keeping my scissors curved ulnarly.? Once completely released, I then placed my [place] and had appropriate decompression of the carpal tunnel proximally as well as distally.? I then inspected the contents of the carpal tunnel which showed an hourglass shape of the median nerve showing its compression.? No masses were noted.? Tendons appeared healthy.? Wound was then thoroughly irrigated.? Tourniquet deflated.? Hemostasis satisfactory with bipolar electrocautery.? I then closed the incision with interrupted nylon stitches.? Xeroform 4 x 4's and a bulky soft dressing was applied to the?left upper extremity.? Patient was then awakened from anesthesia and taken to PACU in stable condition.? Patient tolerated procedure without complications. Disposition: Patient taken to PACU in stable condition recovering well.? Dressing clean dry and intact.? Patient will receive appropriate discharge instructions as well as pain medication postoperatively.? Patient to follow-up with me in the office in 2 weeks.? They understand they may be weightbearing as tolerated to the?left hand.? Patient should keep incision clean dry and intact.? Patient understands if any questions or concerns may contact the office.
[2023-09-12] MEDS: TRAMadol 50 mg Tablet PO (08:29)
--- NOTE | 2023-09-12 08:40 | ANE.PACU2 ---
Inpatient post-anesthesia follow up: Airway intact: Yes Vital signs: Temperature 97.6 F Pulse Rate 52 Respiratory Rate 16 Blood Pressure 143/77 Pulse Oximetry 96 Oxygen Delivery Me thod Room Air Oxygen Flow Rate Fraction of Inspir ed Oxygen Hydration adequate: Yes Nausea and vomiting: No Pain level: 1 Mental status: Baseline
== END 2023-09-12 08:43 | disposition home or self-care (01) ==
PROVIDERS: PCP Physician Assistant; Visit Provider Student in an Organized Health Care Education/Training Program
PROC: (CPT 64721; principal; 2023-09-12 07:00)
DX: G56.02 Carpal tunnel syndrome, left upper limb (principal); E11.22 Type 2 diabetes mellitus with diabetic chronic kidney disease; I12.9 Hypertensive chronic kidney disease with stage 1 through stage 4 chronic kidney disease, or unspecified chronic kidney disease; N18.2 Chronic kidney disease, stage 2 (mild); I25.10 Atherosclerotic heart disease of native coronary artery without angina pectoris; F17.210 Nicotine dependence, cigarettes, uncomplicated; J44.9 Chronic obstructive pulmonary disease, unspecified
CPT/HCPCS: 64721; 36416; 82962; J0131; J0690; J1885; J2250; J2704; J2795; J3010; J7030

== ENCOUNTER → 2023-10-23 08:56 | Outpatient (BNVA) | payer BC, MEDICAID, SELFPAY | PROVIDERS: PCP Physician Assistant; Visit Provider Physician Assistant | DX: M79.642 Pain in left hand (principal) | CPT/HCPCS: 73110 ==

== ENCOUNTER 2023-11-27 06:00 | Outpatient (RCR) | payer BC, MEDICAID, SELFPAY | END 2023-12-27 23:59 | disposition home or self-care (01) | LOC: SOT 06:00 | PROVIDERS: PCP Physician Assistant; Visit Provider Student in an Organized Health Care Education/Training Program | DX: G56.22 Lesion of ulnar nerve, left upper limb (principal) | CPT/HCPCS: 97110; 97165; 97530; L3763 ==

== ENCOUNTER 2023-11-28 05:40 | Day surgery (SDC) | payer BC, MEDICAID, SELFPAY ==
[2023-11-28] VITALS (10 sets, daily range): BP systolic 102–122; BP diastolic 62–77; PULSE 49–76; RESP 14–18; TEMP 36.1–36.4; O2SAT 93–97; BMI 27.3
[2023-11-28] MEDS: acetaminophen 1,000 MG/100 ML PIGGYBACK 400 MG IV (06:24)
[2023-11-28] MEDS: scopolamine 1.5 Patch 1 PATCH TRANSDERMA (06:24)
[2023-11-28] MEDS: ketorolac 30 mg/mL INJ IVP (06:24)
[2023-11-28] MEDS: sodium chloride 0.9% 1,000 ML 30 ML IV (06:24)
[2023-11-28 07:23] LABS: Glucose Point of Care 166 mg/dL (70-110)
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
--- NOTE | 2023-11-28 07:50 | ANES.PROC ---
Anesthesia Procedures Procedure/Date: 11/28/23 Nerve Block ^: Nerve Block 1: Main Anesthesia: other (100mcg fentanyl 2mg versed) Time Out Performed: Yes Consent: requested by attending/covering physician and from patient Nerve block location: interscalene Anesthesia monitors applied: pulse oximetry, EKG, BP cuff and oxygen Nerve block position: supine Anesthetic Used: ropivicaine 0.5% Amount of anesthesia used (mL): 30 Ultrasound used to: recognize landmarks Nerve Stimulator Used?: Yes Interscalene/Femoral BLK: 4 stimuplex 21 g needle used for position and inplane approach Injection: neg aspiration of heme Patient Tolerated Procedure: well Complications: none Additional Comments: decadrong 4mg added to block
[2023-11-28] MEDS: ceFAZolin 2,000 MG in sodium chloride 0.9% (plus) 50 ML 100 MG IV (07:57)
--- NOTE | 2023-11-28 09:08 | SUR.PREOP ---
supraclavicular block completed using 30ml of 0.5% of rupivicaine and decadron.
--- NOTE | 2023-11-28 09:19 | P.OP_ITS ---
Operative Report Date of procedure: November 28, 2023 Surgeon: Hudson Wong DO Procedure: Preoperative diagnosis: Right carpal tunnel syndrome Right?cubital tunnel syndrome post-op diagnosis:? 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 Patient had NCS findings consistent with this.? ?On examination in the office patient findings are consistent with this preoperative diagnosis. We had detailed discussion in office about continued nonoperative intervention versus operative intervention.? Patient understands the risk benefits complications alternatives to surgical and nonsurgical treatment options.? Patient understands the risks include but not limited to make it better, make it worse, infection, permanent injury to nerve, decreased function and sensation to the hand with persistent weakness.? Given these risks patient understands and agrees to proceed with current plan.? Patient elects to proceed with a surgical intervention of right carpal tunnel release and right cubital tunnel release with possible ulnar nerve transposition. All questions answered. Procedure: Patient was seen and evaluated in the preoperative holding area.? The consent that was filled out in office was reviewed with patient. Correct extremity was then marked.? Patient was seen evaluated by the preoperative team as well as anesthesia department. Patient received regional anesthesia per the anesthesia apartment.? Once cleared for surgery patient was then taken to the operative suite and?transported onto the operative table all bony prominences were well-p added and patient was secured to the table.? Right upper extremity was placed on an armboard.? Patient then underwent anesthesia per the anesthesia department. The Right upper extremity tourniquet was applied. Patient's Right upper extremity was then prepped and draped in standard orthopedic fashion.? This point a final timeout was performed. Patient received appropriate preop antibiotics. Esmarch tourniquet was used to exsanguinate the operative extremity and was insufflated to 250 mmHg.? I started with the carpal tunnel release first.? I made a standard open carpal tunnel release starting with the distal most extent in the palm at the Cuevas's cardinal line and the incision line was made in line with the fourth ray and ended just distal to the wrist crease.? Sharp scalpel incision was made through skin and subcutaneous tissue I then utilizing self retainer then began to dissect with dissection scissors split longitudinally the palmar fascia.? Next I then utilizing my contact lens assistant Anusha retractors subsequently utilizing scalpel feathered through the palmaris brevis as well as through the?transverse carpal ligament distally.? Once I encountered the floor of the?transverse carpal ligament and entered into the carpal tunnel I then switched to dissection scissors.? Carefully released the distal extent of the?transverse carpal ligament to the palmar fat.? Care was to protect the recurrent branch and not injured this during this part of the case.? Next I then placed a Eddington underneath the?transverse carpal ligament proximally to protect the nerve in the carpal tunnel contents.? And then I subsequently under loupe magnification utilize my dissection scissors to release the?transverse carpal ligament into the antebrachial fascia under direct visualization with care to keep my scissors with a curved ulnarly away from the palmar cutaneous branch.? The?transverse carpal was then completely decompressed proximally and a Eddington was then placed both distally and proximally throughout the carpal tunnel and had complete decompression of the nerve.? The nerve did appear to have hourglass shape as it went through the carpal tunnel.? With significant irritation noted around the nerve.? No masses were noted within the contents of the carpal tunnel.? This completed the carpal tunnel release and then I subsequently irrigated the wound bed and placed a wet Ray-Porter into the incision for later closure. Standard curvilinear incision was made centering over the ulnar nerve between the medial epicondyle and olecranon process.? Sharp scalpel excision through skin and subcutaneous tissue was performed.? Once I encountered subcutaneous tissue I then utilized dissection scissors to spread in the path of the [facility] and care was made to protect any nerve branches throughout this case.? I then utilized a scalpel to complete my dissection directly on over to the flexor pronator mass and elevated this fat tissue directly off of the fascia.? I started my dissection of the ulnar nerve the nerve proximally.? Once identified I then utilized Littler dissection scissors and decompress the nerve completely and proximally and utilized blunt dissection to make sure there was no entr apment proximally..? Once decompressed proximally I then traced the nerve distal through Logan's ligament and as it entered the FCU fascia aponeurosis and completed by decompression and ulnar nerve neurolysis distally.? The nerve was completely released in situ no areas of entrapment I was able to place my finger distally and proximally with no areas entrapment along the nerve.? At this point in time by in situ release was completed I then subsequently took the elbow through range of motion and subluxation was noted over the medial epicondyle and plan for ulnar nerve?transposition?was made.? ?I thoroughly irrigated the nerve throughout the case to prevent it from drying out. Of note the ulnar nerve had significant irritation and inflammation.? Next while protecting the nerve as well as care to not injure any venous structures I then excised the intermuscular septum proximally with bipolar electrocautery.? This allowed for there to be no entrapment proximally with my?transposition.? Next I then performed my standard Z- flap into the fascia.? This created a large thick fascial band that would be sutured to secure the ulnar nerve when its been?transposed.? Once the incision was made just through the fascia I then mobilized just the fascia and freed the muscle belly off of this.? I then sequentially excised the T and Y shaped fascial bands throughout the flexor pronator mass to prevent any type of bandage strip structure irritating the?transposition.? At this point I had only soft tissue and muscle belly with which the ulnar nerve could rest.? I had to do a small excision of the muscle belly distally to create a nice trough for the nerve to lie.? At this point I then mobilized the nerve and this was?transposed into the flexor pronator insertion under the fasica flaps.? There was no evidence of kinking/tethering of the nerve.? this was significantly redundant and lax with no signs of tension or entrapment.? I then utilized a 3-0 Ethibond suture and approximated the fascia flaps that was created and the Right knee okay okay secured with horizontal interrupted mattress stitches.? I was able to place 2 fingers under the repair with no evidence of entrapment and the elbow was taken through range of motion and no areas of entrapment or kinking were noted on the nerve and the nerve was redundant relaxed in all ranges of motion.? This completed my ulnar nerve decomp ression of the?cubital tunnel as well as ulnar nerve?transposition.? Wound bed was then thoroughly irrigated.? Tourniquet was deflated.? Maintained exact hemostasis with bipolar electrocautery.? I did place a elmer drain to prevent hematoma formation. As result the skin was reapproximated with interrupted Vicryl subcutaneous suture 3-0.? I next utilized a running horizontal mattress stitch with 3-0 nylon.? Extremity was then cleaned and the incision was then covered with Xeroform 4 x 4's ABD Curlex and soft roll and a?cubital splint was then applied with an Erich wrap.? Patient was then awakened from anesthesia and taken to PACU in stable condition. Disposition: Patient taken to PACU in stable condition.? Patient given appropriate discharge instructions as well as pain medication.? We will get Patient in with OT hand therapy for splint takedown dressing change and drain pull. Patient will see me in office in 2 weeks.? pt understands? if they has any questions they can contact the office.
--- NOTE | 2023-11-28 09:29 | P.BOP_ITS ---
Date of Procedure: [November 28, 2023] Surgeon: [Dr. Wong DO] Center Medical Director(s): [Ruddy Wong PA-C] Procedure(s) performed: [Right carpal tunnel release right cubital tunnel release ulnar nerve transposition performed] Findings of the procedure(s): [Right carpal tunnel syndrome right cubital tunnel syndrome. With extension flexion of elbow the ulnar nerve subluxed over her elbow] Estimated blood loss: [10 ml] Specimen(s) removed: [N/A] Post-operative diagnosis: [Right carpal tunnel syndrome and right cubital tunnel syndrome]
--- NOTE | 2023-11-28 09:34 | PM.PACU ---
PACU note Narrative: Patient is a 53-year-old male that underwent a right carpal tunnel right cubital tunnel release. Patient transferred to PACU in stable condition. Exam is limited due to patient being under anesthesia still is completely woken up. Pain is well controlled. Dressing on hand is dry and in place. Patient's fingers are warm and well-perfused. normal cap refill under 2 seconds. Exam: unarousable Disposition: discharged
--- NOTE | 2023-11-28 09:55 | ANE.PACU2 ---
Inpatient post-anesthesia follow up: Airway intact: Yes Vital signs: Temperature 97.4 F Pulse Rate 49 Respiratory Rate 18 Blood Pressure 110/67 Pulse Oximetry 96 Oxygen Delivery Me thod Room Air Oxygen Flow Rate 3 Fraction of Inspir ed Oxygen Hydration adequate: Yes Nausea and vomiting: No Pain level: 1 Mental status: Baseline
== END 2023-11-28 11:50 | disposition home or self-care (01) ==
PROVIDERS: PCP Physician Assistant; Visit Provider Student in an Organized Health Care Education/Training Program
PROC: (CPT 64721; principal; 2023-11-28 07:50)
PROC: (CPT 64718; 2023-11-28 07:50)
PROC: (CPT 64718; 2023-11-28 07:50)
DX: G56.01 Carpal tunnel syndrome, right upper limb (principal); G56.21 Lesion of ulnar nerve, right upper limb; J44.9 Chronic obstructive pulmonary disease, unspecified; E78.5 Hyperlipidemia, unspecified; E11.22 Type 2 diabetes mellitus with diabetic chronic kidney disease; I12.9 Hypertensive chronic kidney disease with stage 1 through stage 4 chronic kidney disease, or unspecified chronic kidney disease; I25.10 Atherosclerotic heart disease of native coronary artery without angina pectoris; N18.2 Chronic kidney disease, stage 2 (mild); Z95.5 Presence of coronary angioplasty implant and graft; F17.210 Nicotine dependence, cigarettes, uncomplicated; Z79.84 Long term (current) use of oral hypoglycemic drugs
CPT/HCPCS: 64718; 64721; 36416; 82962; J0131; J0690; J1100; J1885; J2250; J2405; J2704; J7030

== ENCOUNTER 2023-12-28 06:00 | Outpatient (RCR) | payer BC, MEDICAID, SELFPAY | END 2024-01-26 23:59 | disposition home or self-care (01) | LOC: SOT 06:00 | PROVIDERS: PCP Physician Assistant; Visit Provider Student in an Organized Health Care Education/Training Program | DX: G56.01 Carpal tunnel syndrome, right upper limb (principal); G56.21 Lesion of ulnar nerve, right upper limb | CPT/HCPCS: 97110 ==

== ENCOUNTER 2024-07-29 08:02 | Outpatient (CLI) | payer BC, MEDICAID, SELFPAY ==
[2024-07-29 08:40] VITALS: PULSE 68; RESP 18; O2SAT 97
== END 2024-07-29 08:03 | disposition home or self-care (01) ==
LOC: RT 08:04
PROVIDERS: PCP Physician Assistant; Visit Provider Physician Assistant
DX: J44.9 Chronic obstructive pulmonary disease, unspecified (principal); R94.2 Abnormal results of pulmonary function studies
CPT/HCPCS: 94060; 94726; 94729; J7613

== ENCOUNTER 2024-09-02 07:55 | Outpatient (CLI) | payer BC, MEDICAID, SELFPAY ==
--- NOTE | 2024-09-02 | ECG_ITS ---
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 Interpretive Statements Lung unchanged pre/post procedure; Intraprocedure shortess of breath; Symptoms resoled by discharge PROCEDURE: The baseline electrocardiogram showed normal sinus rhythm with normal ST-Ts; poor R wave progression. At the baseline, the patient's blood pressure was 121/73 mm Hg with a heart rate of 65. The patient exercised for 8 minutes and 46 seconds on a standard Jonnathan protocol. Patient attained a maximum heart rate of 147 beats per minute(88% of the maximum predicted heart rate) with a blood pressure at the peak exercise of 206/87 mm Hg. The EKG at the peak exercise revealed no significant changes. Patient did not have any chest pain or any significant arrhythmis with the exercise Sestamibi was injected 1 minute prior to the peak exercise During the recovery phase, there were no new changes. Blood pressure at the end of the recovery phase was 135/65 mm Hg with a heart rate of 84 per minute. CONCLUSION: 1. No significant EKG changes with the [treadmill exercise 2. No exercise-induced chest pain or cardiac arrhythmia 3. Fair exercise tolerance, attained a maximum of 10.6 METs 4. Hypertensive response to exercise 5. Sestamibi/Sestamibi perfusion results pending; see separate report. Electronically Signed On 09-07-2024 22:09:52 CDT by Kris Sparrow M.D. [email or web address]
[2024-09-02 08:04] VITALS: BMI 27.3
--- NOTE | 2024-09-02 08:05 | NMCV_ITS ---
NM jerod perf SPECT r/s* [id number] Kaylan Named Age: 54 Gender: M : 1970 Exam Date: 09/02/2024 09:08 Ordering Phys: Luis Carvalho M.D ([email or web address]) Technologist: JOELLEN Faria Exam Location: [facility] Indications: cp STRESS TEST Please see separate stress test report in [facility] for full findings IMAGE PROTOCOL Rest/Stress 1 Exercise Day Radiopharmaceutical Dose (mCi) Administration Site Administered by Rest: Tc-99m 10.7 IV JOELLEN Faria Sestamibi Stress:Tc-99m 32.8 IV JOELLEN Faria Sestamibi Rest: 02-Sep-2024 60 Discovery 630 Stress: 02-Sep-2024 15 Discovery 630 Radiopharmaceutical was injected at 86 % maximum heart rate. Images obtained in supine and prone position. SPECT RESULTS Technical Quality: Good Raw Data Analysis: Normal Image Corrections: No attenuation or motion correction applied Summed Stress Score: 0 Summed Rest Score: 6 Summed Difference Score: 0 PERFUSION FINDINGS Small area of slightly decreased tracer uptake was noted in the mid and apical inferior wall region. No significant reversibility was noted in this area. FUNCTIONAL RESULTS (calculated via Gated SPECT) Stress Image LV EF (%): 76 Stress EDV (mL):78 TID: 0.81 Stress ESV (mL):19 FUNCTIONAL FINDINGS: Segmental wall motion analysis revealing no gross wall motion abnormalities IMPRESSIONS 1. Myocardial perfusion imaging revealing small area of slightly decreased tracer uptake involving the mid and apical inferior wall region, most likely represent attenuation artifact 2. Normal LV ejection fraction 76%. 3. LV wall motion analysis revealing no gross wall motion abnormalities. 4. Normal LV volume Low probability for coronary ischemia, based on the above findings Dr Kris Sparrow MD FACC (Electronically Signed) Final Date: 02 September 2024 16:29 S
[2024-09-02 09:55] VITALS: BP 135/65; PULSE 84
== END 2024-09-02 07:56 | disposition home or self-care (01) ==
LOC: CDL 07:56
PROVIDERS: PCP Physician Assistant; Visit Provider Internal Medicine
DX: R07.9 Chest pain, unspecified (principal); R06.02 Shortness of breath; R93.1 Abnormal findings on diagnostic imaging of heart and coronary circulation
CPT/HCPCS: 36415; 78452; 93017; A9500

== ENCOUNTER 2025-01-14 09:34 | Outpatient (CLI) | payer BC, MEDICAID, SELFPAY ==
--- NOTE | 2025-01-14 09:42 | CT_ITS ---
WS: [id number] LDCT LUNG CANCER SCREENING TECHNIQUE: Noncontrast CT of the chest with coronal and sagittal reformatted images. CLINICAL INFORMATION: NICOTINE DEPENDENCE,CIGARETTES COMPARISON: None. DLP: 67.62 mGy.cm DIvol: Mean CTDIvol: 1.40 (mGy) All CT scans at [facility] use at least one of these dose optimization techniques: automated exposure control; mA and/or kV adjustment per patient size (includes targeted exams where dose is matched to clinical indication); or iterative reconstruction. FINDINGS: Mild chronic paraseptal emphysematous changes. 4 mm pleural nodule RIGHT middle lobe. Subsegmental atelectasis in the lung bases. RIGHT perifissural nodularity measuring 6 mm. Subpleural nodule LEFT upper lobe measuring 5 mm. LEFT perifissural nodularity. No suspicious pulmonary parenchymal abnormalities. Cardiomegaly. Normal caliber thoracic aorta. No mediastinal or hilar lymphadenopathy. No axillary lymphadenopathy. Small esophageal hiatal hernia. Adrenal glands are normal. CT/CT lung screening [id number] IMPRESSION: LUNG-RADS: 2-Benign Appearance or Behavior FOLLOW UP: 12 Month: Continue annual screening with LDCT
== END 2025-01-14 09:35 | disposition home or self-care (01) ==
LOC: RAD 09:35
PROVIDERS: PCP Physician Assistant; Visit Provider Physician Assistant
DX: Z12.2 Encounter for screening for malignant neoplasm of respiratory organs (principal); F17.210 Nicotine dependence, cigarettes, uncomplicated; J98.11 Atelectasis; R91.8 Other nonspecific abnormal finding of lung field; I51.7 Cardiomegaly; K44.9 Diaphragmatic hernia without obstruction or gangrene
CPT/HCPCS: 71271